=== PATIENT | female | born 1950 | race Caucasian/White ===

== ENCOUNTER 2020-01-20 16:14 | Emergency (ER) | payer MEDICARE, OTHER, SELFPAY ==
--- NOTE | ~2020-01-20 | XR_ITS ---
XR finger 2nd RT min 2V 01/20/2020 18:55 Indication: Right second finger fracture. Post reduction. Procedure: 2 views right second finger Comparison: 01/20/2020 Findings: Interval reduction of the right second distal phalangeal fracture with an overlying K wire extending into the middle phalanx. There is near-anatomic alignment of the fracture fragments post re duction. Impression: 1: Near-anatomic alignment of comminuted fracture right second distal phalanx post reduction with a s rima K wire. Reviewed, dictated and finalized at location A. LE POLISHER Impression: 1: Near-anatomic alignment of comminuted fracture right second distal phalanx p ost reduction with a single K wire.
--- NOTE | ~2020-01-20 | XR_ITS ---
XR hand RT min 3V 01/20/2020 16:50 Indication: Right hand pain after injury Procedure: 3 views right hand Comparison: No prior studies for comparison. Findings: There is a comminuted displaced right second distal phalangeal fracture with intra-articula r extension. This fracture appears to be open fracture with the bone extending to the skin surface do rsally. There is mild polyarticular osteoarthritis. Impression: 1: Comminuted open intra-articular displaced fracture right second distal phalanx. Reviewed, dictated and finalized at location A. [facility] NURSING DIRECTOR Impression: 1: Comminuted open intra-articular displaced fracture right second distal phala nx.
[2020-01-20 16:23] VITALS: BP 118/65; PULSE 90; RESP 16; TEMP 36.6; O2SAT 100
--- NOTE | 2020-01-20 16:29 | ED.UPPEXIN ---
HPI - Extremity Injury (Upper) General Chief Complaint: Extremity Injury, Upper <Tash Mata MD - Last Filed: 01/21/20 07:11> Stated Complaint: r hand injury <Tash Mata MD - Last Filed: 01/21/20 07:11> Time Seen by Provider: 01/20/20 16:16 <Tash Mata MD - Last Filed: 01/21/20 07:11> Source: patient and RN notes reviewed <Tash Mata MD - Last Filed: 01/21/20 07:11> Mode of arrival: EMS <Tash Mata MD - Last Filed: 01/21/20 07:11> Limitations: no limitations <Tash Mata MD - Last Filed: 01/21/20 07:11> History of Present Illness HPI narrative: Pt is a 69 y/o female who presents to the ED, via EMS from home, with 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 Pt denies a HI and LOC. Pt is right handed. Pt's right hand was wrapped in dressing and placed in a splint by EMS. Pt's Tetanus is not UTD. Pt has an open fracture to her 2nd digit on her right hand. Pt also reports 2nd digit pain on her right hand, but denies numbness, tingling, elbow pain and RUE pain. <Tash Mata MD - Last Filed: 01/21/20 07:11> MD complaint: injury to: right and hand <Tash Mata MD - Last Filed: 01/21/20 07:11> Onset (ago): minute(s) <Tash Mata MD - Last Filed: 01/21/20 07:11> Other injuries: none <Tash Mata MD - Last Filed: 01/21/20 07:11> Handedness: right <Tash Mata MD - Last Filed: 01/21/20 07:11> Place: home <Tash Mata MD - Last Filed: 01/21/20 07:11> Context: other (limb knocked her and her off a ladder) <Tash Mata MD - Last Filed: 01/21/20 07:11> Associated symptoms: other (2nd digit on right hand pain) <Tash Mata MD - Last Filed: 01/21/20 07:11> Treatments prior to arrival: bandage and splint <Tash Mata MD - Last Filed: 01/21/20 07:11> Related Data Home Medications: Home Medications Medication Instructions Recorded Confirmed amitriptyline 75 mg PO HS 01/20/20 conjugated estrogens [Premarin] 0.3 mg PO HS 01/20/20 indapamide 1.25 mg PO DAILY 01/20/20 lisinopril 20 mg PO DAILY 01/20/20 simvastatin 10 mg PO DAILY 01/20/20 <Tash Mata MD - Last Filed: 01/21/20 07:11> Allergies/Adverse Reactions: Allergies Allergy/AdvReac Type Severity Reaction Status Date / Time No Known Allergies Allergy Mild Verified 01/20/20 16:31 <Tash Mata MD - Last Filed: 01/21/20 07:11> Review of Systems Review of Systems: All systems reviewed & are unremarkable except as noted in HPI and below <Tash Mata MD - Last Filed: 01/21/20 07:11> Musculoskeletal: Musculoskeletal: Reports other (reports: 2nd digit on right hand pain; denies: right elbow pain, RUE pain) <Tash Mata MD - Last Filed: 01/21/20 07:11> Neurologic: Denies syncope, Denies numbness and Denies tingling <Tash Mata MD - Last Filed: 01/21/20 07:11> [facility] Past Medical History Medical History: Medical History (Updated 01/21/20 @ 00:00 by Baljeet Beltran) Anxiety Arthritis GERD (gastroesophageal reflux disease) HTN (hypertension) Hyperlipidemia Polyp of vagina Seasonal allergies Ulcer Vaginal venereal warts <Tash Mata MD - Last Filed: 01/21/20 07:11> Surgical History Surgical History: Surgical History (Updated 01/20/20 @ 16:38 by Corrina Lopez) H/O parathyroidectomy History of abdominoplasty History of hysterectomy History of tubal ligation Hx of section x2 <Tash Mata MD - Last Filed: 01/21/20 07:11> Family History Family History: Family History Mother Hypertension Family history of coronary artery disease Grandparent Cerebrovascular accide
[2020-01-20] MEDS: ONDANSETRON INJ 4 MG/2 ML VIAL IV PUSH (16:42)
[2020-01-20] MEDS: MORPHINE SULFATE 4 MG/ML INJ IV PUSH (16:42)
[2020-01-20] MEDS: LACTATED RINGERS 1,000 ML 999 ML IV CONT (16:50)
[2020-01-20] MEDS: TETANUS,DIPHTHERIA,AC PERTUSSIS ADULT 0.5 ML (ADACEL) IM (16:51)
--- NOTE | 2020-01-20 18:34 | PC.NURSE ---
Dr. Jordan at bedside at this time with patient.
[2020-01-20 18:51] VITALS: BP 152/83; PULSE 114; RESP 18; O2SAT 97
--- NOTE | 2020-01-20 19:07 | WPDCN ---
HPI Data of Consult Date/Time: 01/20/20 19:07 Primary Care Provider: UNKNOWN,DOCTOR Consult Narrative Narrative: Charisse Valderrama is a 69 year old female who was working in the yard with her this afternoon. They were cutting large branches. He was on a ladder and was struck by a large branch that kicked back. He fell to the ground. She got her right index finger caught between 2 heavy objects that caused an open fracture dislocation of the right index finger distal phalanx. She also has a small flap laceration of the right ring finger. I was called by the emergency room to see if I could take care of this. I reviewed the x-rays from a different location. I went to the emergency room and evaluated her finger she has a large subungual hematoma. There is a nondisplaced dorsal base fracture fragment that appears to be attached to the terminal tendon. The remainder of this bone appears to be intact and is grossly displaced apex dorsal. The nail plate remains attached to the distal phalanx but was avulsed from the nail fold. The skin laceration is minimal at the lateral fold. This patient's was also in the emergency room and plans were being made to shift him to [facility] for observation. She was anxious to be able to see him before he left. He was ended different room. This patient is in good health her current medications are simvastatin lisinopril and indapamide she is fully alert and oriented and attempted already been made to numb her finger and reduced the fracture. She was apprehensive about further injections. I agree to take over the repair of this digit and to follow this patient in my office until healed. She had already been given 2 g of Ancef IV and her Tdap PMFSH Past Medical History Medical History (Updated 01/20/20 @ 17:51 by Tash Mata MD) Anxiety Arthritis GERD (gastroesophageal reflux disease) HTN (hypertension) Hyperlipidemia Polyp of vagina Seasonal allergies Ulcer Vaginal venereal warts Surgical History Surgical History (Updated 01/20/20 @ 16:38 by Corrina Lopez) H/O parathyroidectomy History of abdominoplasty History of hysterectomy History of tubal ligation Hx of section x2 Family History Family History Mother Hypertension Family history of coronary artery disease Grandparent Cerebrovascular accident Social History Social History Smoking status: Never smoker Second hand tobacco smoke exposure: No Alcohol intake: current Gender identity (if verbalized by the patient): Female Meds Home Medications and Allergies Home Medications Medication Instructions Recorded Confirmed Type amitriptyline 75 mg PO HS 01/20/20 History conjugated estrogens [Premarin] 0.3 mg PO HS 01/20/20 History hydrocodone-acetaminophen 1 tablet PO Q4H PRN #14 tablet 01/20/20 Rx indapamide 1.25 mg PO DAILY 01/20/20 History lisinopril 20 mg PO DAILY 01/20/20 History simvastatin 10 mg PO DAILY 01/20/20 History Allergies Allergy/AdvReac Type Severity Reaction Status Date / Time No Known Allergies Allergy Mild Verified 01/20/20 16:31 Vital Signs Vital Signs - 24 hr 01/20/20 16:23 01/20/20 18:51 Temperature 36.6 C Pulse Rate 90 114 H Respiratory Rate 16 18 Blood Pressure 118/65 152/83 H Pulse Oximetry 100 97
--- NOTE | 2020-01-20 19:27 | PM.PROC ---
Procedure Note - Detailed Date of procedure: 01/20/20 Pre-op diagnosis: r hand injury open fracture dislocation of the distal phalanx right index finger 0.5 cm laceration of the right ring finger Post-op diagnosis: same Procedure performed: >Open reduction and internal fixation of the right index finger distal phalanx . Description of procedure: The patient was on a gurney in the emergency room. We cleaned away all the existing material that had been used prior to my arrival for treatment of this finger. The digit was anesthetized with 1% lidocaine with epinephrine as a digital block. The entire and was pain with Betadine. Under sterile conditions the fracture site was opened in shotgun fashion. The exact condition of this was noted. The fracture gap was irrigated with safe cleanse antiseptic solution. The distal phalanx was very unstable. The dorsal base remained in anatomic position. The repair was done with simple 5 0 nylon suture to repair the small skin laceration along the ulnar nail fold. The fracture was reduced and stabilized with sutures through the nail plate, exiting the skin proximal to the nail fold. I elected to try to internally stabilize this fracture by passing a 21 gauge needle retrograde down the shaft of the distal phalanx and across the distal interphalangeal joint. This was successful. We wrapped the hand and sterile gauze and she went to see her off before he left were [place]. When she returned we got post reduction x-rays. The showed satisfactory placement of the fixation needle and satisfactory reduction of the fracture. Her finger was formally dressed. A Band-Aid was applied to the ring finger. She is discharged with prescription for pain medicine instructions in wound care and follow-up. As noted she had received 2 g of Ancef prior to my arrival Surgeon: Kian Jordan MD
[2020-01-20 19:31] VITALS: BP 127/65; PULSE 112; RESP 20; O2SAT 98
== END 2020-01-20 19:33 | disposition home or self-care (01) ==
PROVIDERS: Emergency Provider Emergency Medicine
DX: S62.630B Displaced fracture of distal phalanx of right index finger, initial encounter for open fracture (principal); S61.214A Laceration without foreign body of right ring finger without damage to nail, initial encounter; F41.9 Anxiety disorder, unspecified; M19.90 Unspecified osteoarthritis, unspecified site; I10 Essential (primary) hypertension; E78.5 Hyperlipidemia, unspecified; E89.2 Postprocedural hypoparathyroidism; Z23 Encounter for immunization; W23.0XXA Caught, crushed, jammed, or pinched between moving objects, initial encounter
CPT/HCPCS: 12001; 26765; 26770; 73130; 73140; 90471; 90715; 96361; 96365; 96375; 99285; J0690; J2270; J2405; J7120

== ENCOUNTER 2020-03-04 08:23 | Outpatient (CLI) | payer MEDICARE, OTHER, SELFPAY ==
--- NOTE | ~2020-03-04 | XR_ITS ---
EXAMINATION: XR finger 2nd RT min 2V DATE: 03/04/2020 08:43 INDICATION: Fracture of the second distal phalanx. TECHNIQUE: 3 views of right hand second digit were obtained. COMPARISON: Right hand second digit radiographs and right hand radiographs 01/20/2020 FINDINGS: There is a comminuted intra-articular fracture of second distal phalanx. The main basilar d orsal fracture fragment demonstrates 2 mm posterior displacement. There is a displaced sagittal fract ure component of the tuft. There are nondisplaced fracture components at the medial and lateral aspec ts of the base of the distal phalanx. There is mild osteoarthritis of second metacarpophalangeal join t and proximal interphalangeal joint and moderate osteoarthritis of distal interphalangeal joint. IMPRESSION: 1. Comminuted fracture of second distal phalanx with slight worsening of alignment compared to the po streduction radiographs on 01/20/2020. Reviewed, dictated and finalized at location A. IMPRESSION: 1. Comminuted fracture of second distal phalanx with slight worsening of alignm ent compared to the postreduction radiographs on 01/20/2020.
== END 2020-03-04 08:24 | disposition home or self-care (01) ==
PROVIDERS: PCP Family Medicine; Visit Provider Plastic Surgery
DX: S62.630D Displaced fracture of distal phalanx of right index finger, subsequent encounter for fracture with routine healing (principal); X58.XXXD Exposure to other specified factors, subsequent encounter
CPT/HCPCS: 73140

== ENCOUNTER 2020-04-06 09:58 | Outpatient (CLI) | payer MEDICARE, OTHER, SELFPAY ==
--- NOTE | ~2020-04-06 | XR_ITS ---
XR finger 2nd RT min 2V DATE: 04/06/2020 10:12 INDICATION: 01/20/2020 fracture TECHNIQUE: 4 views COMPARISON: 01/20/2020 pre- and postreduction views, 03/04/2020 right second finger FINDINGS: No significant change in position or alignment at the comminuted intra-articular fracture o f the distal phalanx extending from the base of the tuft since 03/04/2020. Reviewed, dictated and finalized at location A.
== END 2020-04-06 09:59 | disposition home or self-care (01) ==
LOC: ANHIMG 10:00
PROVIDERS: PCP Family Medicine; Visit Provider Plastic Surgery
DX: S62.630D Displaced fracture of distal phalanx of right index finger, subsequent encounter for fracture with routine healing (principal)
CPT/HCPCS: 73140

== ENCOUNTER 2020-04-09 06:03 | Outpatient (CLI) | payer MEDICARE, OTHER, SELFPAY ==
[2020-04-09 18:34] LABS: SARS-CoV-2 RNA PCR Negative
== END 2020-04-09 06:04 | disposition home or self-care (01) ==
LOC: ANHCOVIDDT 06:05
PROVIDERS: PCP Family Medicine; Visit Provider Plastic Surgery
DX: Z01.818 Encounter for other preprocedural examination (principal); Z11.59 Encounter for screening for other viral diseases
CPT/HCPCS: 87635; U0003

== ENCOUNTER 2020-04-09 07:02 | Outpatient (CLI) | payer MEDICARE, OTHER, SELFPAY ==
--- NOTE | 2020-04-09 07:36 | ECG_ITS ---
Measurements Intervals [place] Rate: 83 P: 67 ME: 148 QRS: 24 QRSD: 90 T: 29 QT: 382 QTc: 451 Interpretive Statements SINUS RHYTHM NORMAL ECG Electronically Signed On 04-09-2020 8:48:55 CDT by Eric Bucio D.O.
[2020-04-09 07:44] LABS: Blood Urea Nitrogen 22 mg/dL (7-17); Carbon Dioxide 31 mmol/L (22-30); Chloride 99 mmol/L (98-107); Estimated Glomerular Filt Rate 55; Glucose 121 mg/dL (65-105); Potassium 3.7 mmol/L (3.4-5.0); Sodium 136 mmol/L (137-145)
== END 2020-04-09 07:03 | disposition home or self-care (01) ==
PROVIDERS: PCP Family Medicine; Visit Provider Anesthesiology
DX: Z01.818 Encounter for other preprocedural examination (principal); Z11.59 Encounter for screening for other viral diseases; I10 Essential (primary) hypertension; S62.630A Displaced fracture of distal phalanx of right index finger, initial encounter for closed fracture
CPT/HCPCS: 36415; 80048; 87635; 93005; C9803; U0003

== ENCOUNTER 2020-04-11 03:09 | Day surgery (SDC) | payer MEDICARE, OTHER, SELFPAY ==
[2020-04-08 18:16] VITALS: BMI 25.7
--- NOTE | 2020-04-10 19:42 | HP_ITS ---
DATE OF SERVICE: 04/11/2020 PREOPERATIVE DIAGNOSIS: Fracture dislocation of the right index distal phalanx. HISTORY: The patient was initially evaluated by me, 01/20/2020. When I met her in the emergency room at [facility], she and her had been trimming some trees, was on the ladder. fell, the ladder collapsed, the patient's finger was cut in the collapsing ladder and sustained an open fracture, which is the right index distal phalanx shaft. We undertook repairs of that in the emergency room the night of her visit and placed a 21-gauge needle across the fracture into the middle phalanx. This was done in somewhat hurried fashion. Her was being shipped out because of some injury to his ribs and she wanted to see him off. On subsequent x-rays, we note that the distal phalanx large fracture fragment subluxed a little bit. Therer is aslo a dorsal base fracture that is of significant size and has allowed subluxation. At one month there is a nonunion. We have waited for this to heal sufficiently to see how it would t rail turner and she has been engaged in therapy and not making satisfactory progress. The plan is to reopen the fracture site, reduce it possibly with a dorsal screw and longitudinal C-wire and correct the subluxation. She agrees to this and understands that continue to be stiffness of this digit, but probably markedly reduce her chance of osteoarthritis and pain later on. We have reviewed x-rays together. We have elected to do this procedure under MAC anesthetic with digital tourniquet. ALLERGIES: SHE HAS NO KNOWN ALLERGIES TO MEDICATIONS. MEDICATIONS: She normally takes: 1. Simvastatin. 2. Lisinopril. 3. Indapamide. 4. Premarin. PAST SURGICAL HISTORY: She has had no prior surgeries. She has no chronic ailments that she is aware of. She has some gastric reflux and some high blood pressure. However, she sees no specialist for these. FAMILY HISTORY: Noncontributory. SOCIAL HISTORY: She lives in [place]. She is retired. She is to [place]. PHYSICAL EXAMINATION: GENERAL: She is a very pleasant, cooperative adult female, 5 feet tall, weighing 134 pounds. She is currently in no acute distress. HEENT: Unremarkable. CHEST: Clear to auscultation. HEART: Regular rate and rhythm by palpation. ABDOMEN: Soft, nontender. EXTREMITIES: Exam reveals her main deficit is in the right index finger at the distal interphalangeal joint, where she remained slightly swollen, slightly erythematous over the dorsum of the joint. She has limited flexion and extension and it remains tender to manipulation. 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 PLAN: Open reduction and internal fixation, possibly with a cortical screw in C-wire. D I MT: Isaiah TALLEY
--- NOTE | ~2020-04-11 | XR_ITS ---
XR surgery orthopedic DATE: 04/11/2020 09:39 INDICATION: ORIF right index finger fracture TECHNIQUE: 5 spot C-arm images of the index finger 2.0 minutes fluoroscopy time 11.5999 cGy*cm2 total DAP COMPARISON: 04/16/2020 right index finger FINDINGS: A comminuted fracture of the distal phalanx is again noted. A screw is placed in posterior- anterior direction through the proximal medial aspect of the distal phalanx. A K wire is placed in th e dorsal aspect of the distal phalanx, extending into the proximal phalanx, terminating at the base o f the middle phalanx. IMPRESSION: ORIF distal phalangeal fracture Reviewed, dictated and finalized at Location A. Reviewed, dictated and finalized at location A.
[2020-04-11 06:15] VITALS: BP 126/61; PULSE 92; RESP 16; TEMP 36.8; O2SAT 100
--- NOTE | 2020-04-11 06:43 | WPDANESEPPF ---
Anes - Initial Pre Proc Eval Procedure: Operation Date: 04/11/20 07:30 Proposed Procedures p Open Reduction Internal Fixation Dislocated Right Index Distal Phalynx - Kian Jordan MD Date/Time: 04/11/20 06:43 Surgeon: Kian Jordan MD Pre Op Diagnosis: Dislocated Fracture Right Index Phalynx Patient Data Age: 70 Gender: F Height: 5 ft 0.5 in Weight: 60.9 kg Last Vital Signs Temp 36.8 C 04/11/20 06:15 Pulse 92 04/11/20 06:15 Resp 16 04/11/20 06:15 BP 126/61 04/11/20 06:15 Pulse Ox 100 04/11/20 06:15 Allergies Allergy/AdvReac Type Severity Reaction Status Date / Time No Known Allergies Allergy Mild Verified 04/08/20 18:13 Home Medications Medication Instructions Recorded Confirmed Type conjugated estrogens [Premarin] 0.3 mg PO HS 01/20/20 04/08/20 History lisinopril 20 mg PO DAILY 01/20/20 04/08/20 History amitriptyline 75 mg tablet 75 mg PO HS #90 tablet 03/18/20 04/08/20 Rx simvastatin 10 mg tablet 10 mg PO DAILY #90 tablet 03/18/20 04/08/20 Rx indapamide 1.25 mg tablet 1.25 mg PO DAILY #90 tablet 04/01/20 04/08/20 Rx cetirizine mg 04/08/20 History pantoprazole 40 mg PO HS 04/08/20 04/08/20 History Patient hx anesthesia problems: post op nausea/vomiting Family hx anesthesia problems: none PMFSH Past Medical History Medical History Anxiety Arthritis GERD (gastroesophageal reflux disease) HTN (hypertension) Hyperlipidemia Polyp of vagina Seasonal allergies Ulcer Vaginal venereal warts Surgical History Surgical History H/O parathyroidectomy History of abdominoplasty History of hysterectomy History of tubal ligation Hx of section x2 Family History Family History Mother Hypertension Family history of coronary artery disease Grandparent Cerebrovascular accident Social History Social History Smoking status: Never smoker Second hand tobacco smoke exposure: No Alcohol intake: current Gender identity (if verbalized by the patient): Female Anes - Eval Final PreProcedure Day of Procedure 04/11/20 06:43 Patient weight: overweight Heart: regular rate and rhythm Lungs: clear to auscultation Airway: Mallampati scale class II Neurological: alert and oriented Last oral intake: >/= 8 hours ASA classification: III Emergent: no Anesthetic plan: proceed Anesthesia type and monitoring: general LMA and standard monitoring Informed Consent: The patient's anesthetic plan and its attendant risks and benefits were discussed with the patient/family/POA. Questions were solicited and answers provided to the satisfaction of the patient/family/POA.
[2020-04-11] MEDS: SCOPOLAMINE 1.5 MG PATCH TRANSDERM (06:45)
[2020-04-11] MEDS: LACTATED RINGERS 1,000 ML 30 ML IV CONT ×2 (06:45→09:36)
--- NOTE | 2020-04-11 07:30 | WPDHPUPDATE1 ---
History and Physical Update Update Date/Time: 04/11/20 07:30 History and Physical has been reviewed, including an updated exam of the patient. There are NO changes in the patient's condition. Risks, benefits, and alternatives have been discussed and questions answered. Patient agrees to proceed with procedure.
[2020-04-11] MEDS: ceFAZolin 2 GM/D5W 50 ML 2 GM/50 ML BAG IVPB (07:38)
[2020-04-11] MEDS: LIDO 1%/EPINEPHRINE 1:100,000 20 ML VIAL 5 ML INFILTRATE (08:17)
[2020-04-11] MEDS: BUPIVACAINE/EPINEPHRINE 0.5% 10 ML VIAL 6 ML INFILTRATE (09:30)
[2020-04-11 09:36] VITALS: BP 115/49; PULSE 78; RESP 16; TEMP 36.1; O2SAT 100
--- NOTE | 2020-04-11 09:40 | PM.OP ---
Procedure Note - Brief Procedure Note - Brief Date of procedure: 04/11/20 Pre-op diagnosis: Dislocated Fracture Right Index Phalynx Post-op diagnosis: other (Non-union fracture subluxation of distal phalanx of right index finger.) Description of procedure: Delayed ORIF of right index distal phalanx fracture subluxation. Implants: 1.3 mm x 10 mm screw from Modular Hand Set. 0.035 inch c-wire. Anesthesia: MAC and local Surgeon: Kian Jordan MD Abrasive Water Jet Cutter Operator: Mamta Estimated blood loss (mL): 2 Drains: No Packing: No Pathology: none sent Complications: No immediate complications Condition: stable Disposition: same day
[2020-04-11 10:06] VITALS: BP 117/53; PULSE 85; RESP 16; O2SAT 100
--- NOTE | 2020-04-11 10:07 | P.OP_ITS ---
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 She was taken to the operating room where she was placed supine on the operating table. A time-out was held and confirmed. The extremity was prepped and draped in usual fashion as she was given IV sedation. The digit was imaged with fluoroscopy and anesthetized with 1% lidocaine with epinephrine, 6 milliliter. A digital tourniquet was placed on the finger and markings made for the incision extending over the middle phalanx across the distal interphalangeal joint and extended to either side of the nail fold. The skin flaps were elevated. The fracture deformity was identified. The fracture with the attached insertion of the terminal tendon were incised and elevated. The fracture site was debrided of scar tissue. The subluxation was corrected by incising scar to either side of the joint. This did not destabilize the joint laterally. The subluxation was stabilized with a longitudinal 0.035 in C- wire passed retrograde from the tip of the digit into the shaft of the middle phalanx. The fracture fragment was then inserted to its anatomic position and fixed with a 1.3 mm screw placed through the fragment and into the base of the distal phalanx. This appeared quite stable. We accepted the fixation. The tourniquet was removed and the skin wound closed with interrupted running 5 0 nylon suture. A bulky bandage was applied, no splint. She was discharged from the operating room stable condition. She will be discharged home with a prescription for hydrocodone . She received 2 g of Ancef preop. She has instructions in wound care and follow-up. 6 milliliter of Marcaine 0.5% with epinephrine were added to the digit. Surgeon: Kian Jordan MD
== END 2020-04-11 10:47 | disposition home or self-care (01) ==
PROVIDERS: PCP Family Medicine; Visit Provider Plastic Surgery
PROC: (CPT 26546; principal; 2020-04-11 07:30)
DX: S62.630K Displaced fracture of distal phalanx of right index finger, subsequent encounter for fracture with nonunion (principal); W22.8XXD Striking against or struck by other objects, subsequent encounter; I10 Essential (primary) hypertension; K21.9 Gastro-esophageal reflux disease without esophagitis; E78.5 Hyperlipidemia, unspecified; M19.90 Unspecified osteoarthritis, unspecified site; F41.9 Anxiety disorder, unspecified
CPT/HCPCS: 26546; A9270; C1713; J0131; J0690; J2250; J2405; J2704; J3010; J7120

== ENCOUNTER 2020-05-14 13:05 | Outpatient (CLI) | payer MEDICARE, OTHER, SELFPAY ==
--- NOTE | ~2020-05-14 | XR_ITS ---
EXAMINATION: XR finger 2nd RT min 2V DATE: 05/14/2020 13:23 INDICATION: ORIF second distal phalangeal fracture dislocation TECHNIQUE: Dorsal palmar, lateral and 2 oblique views of the right second digit were obtained COMPARISON: 04/06/2020 FINDINGS: Internal fixation of a comminuted intra-articular fracture of the right second distal phalanx. A scre w fixes a small fragment comprising portion of the dorsal/ulnar aspect of the articular surface which appears to be in near-anatomic alignment. The prior volarly subluxed main fragment of the distal pha lanx has also been reduced to essentially anatomic alignment with respect to the head of the middle p halanx with axillary directed percutaneous pin fixation extending from the tuft of the distal phalanx to the base of the middle phalanx. Persistent mild ulnar displacement of a fracture comprising ulnar side of the tuft of the distal phalanx which is not included within the fixation. Mild polyarticular osteoarthritis at the radial aspect of the carpus, the first and second metacarpophalangeal joints a s well as the second proximal and distal interphalangeal joints. IMPRESSION: 1. Comminuted intra-articular fracture of the right second distal phalanx with reduction and fixation in near-anatomic alignment of both the distal interphalangeal joint and the fragments comprising the articular surface of the distal phalanx. Reviewed, dictated and finalized at location A. IMPRESSION: 1. Comminuted intra-articular fracture of the right second distal phalanx with reduction and fixation in near-anatomic alignment of both the distal interphala ngeal joint and the fragments comprising the articular surface of the distal ph alanx.
== END 2020-05-14 13:06 | disposition home or self-care (01) ==
PROVIDERS: PCP Family Medicine; Visit Provider Plastic Surgery
DX: S62.630D Displaced fracture of distal phalanx of right index finger, subsequent encounter for fracture with routine healing (principal); X58.XXXD Exposure to other specified factors, subsequent encounter
CPT/HCPCS: 73140

== ENCOUNTER 2021-05-06 09:07 | Outpatient (CLI) | payer MEDICARE, OTHER, SELFPAY ==
--- NOTE | 2021-05-06 12:33 | WPDPFTINT ---
PFT Procedure Performed PFT Procedure Performed Plethysmography (Lung Vol) Diffusing Cap (DLCO) Flow Vol Loop Spirometry w/o Bronchodil PFT Interpretation This is a pulmonary function test with spirometry, plethysmography and diffusing capacity. The test was performed and results interpreted in accordance with the 2019 and 2005 ATS/ERS Task Force guidelines respectively using the Global Lung Function Initiative-2012 reference equations. Patient demonstrated good effort and cooperation. Reproducibility criteria were met. The quality of the pre bronchodilator spirometry maneuver was Grade A. Findings: Spirometry: The contour the inspiratory expiratory flow tracing are normal. The FVC is 2.65 L, 108% predicted. The FEV1 is 2.12 L, 111% predicted. The FEV1: FVC ratio was 80%. Plethysmography: The total lung capacity is 4.62 L, 104% predicted. Functional residual capacity is 2.28 L, 91% predicted. The residual volume is 1.42 L, 72% predicted. Diffusing capacity: The absolute diffusion capacity is 12.6, 67% predicted. The diffusing capacity corrected for alveolar volume is 3.31, 74% predicted. Impression: The spirometry is normal without evidence of an obstructive abnormality. The lung volumes are normal. The diffusing capacity is normal. There are no prior studies for comparison
== END 2021-05-06 09:08 | disposition home or self-care (01) ==
PROVIDERS: PCP Physician Assistant; Visit Provider Nurse Practitioner Adult Health
DX: R06.00 Dyspnea, unspecified (principal); J44.9 Chronic obstructive pulmonary disease, unspecified; G47.33 Obstructive sleep apnea (adult) (pediatric); Z72.0 Tobacco use
CPT/HCPCS: 94375; 94726; 94729

== ENCOUNTER 2022-11-09 10:46 | Outpatient (CLI) | payer MEDICARE, SELFPAY ==
--- NOTE | ~2022-11-09 | MM_ITS ---
EXAMINATION: MM screening amparo BI w gaston HISTORY: Screening TECHNIQUE: Craniocaudal and mediolateral oblique 3-D tomosynthesis images were obtained and synthetic 2-D images were generated. CAD analysis was submitted and interpreted. COMPARISON: 08/01/2015 BREAST PARENCHYMAL COMPOSITION: The breasts are heterogeneously dense, which may obscure small masses . FINDINGS: There is no evidence of suspicious mass, calcification, or architectural distortion to sugg est malignancy in either breast. There has been no suspicious interval change. IMPRESSION: 1. No mammographic evidence of malignancy. 2. Recommend routine screening mammography in one year. BI-RADS Category 1: Negative Reviewed, dictated and finalized at location B. L CITY DRIVER
== END 2022-11-09 10:47 | disposition home or self-care (01) ==
PROVIDERS: PCP Family Medicine; Visit Provider Physician Assistant
DX: Z12.31 Encounter for screening mammogram for malignant neoplasm of breast (principal)
CPT/HCPCS: 77063; 77067

== ENCOUNTER 2024-11-11 09:29 | Outpatient (CLI) | payer MEDICARE, SELFPAY ==
--- NOTE | ~2024-11-11 | MR_ITS ---
EXAMINATION: MR brain/brain stem wo/w con DATE: 11/11/2024 10:30 INDICATION: Syncope and collapse TECHNIQUE: Magnetic resonance imaging (MRI) of the brain and brainstem was performed without and with 13 mL Multihance intravenous contrast. Sequences included sagittal and axial T1-weighted SE, axial d iffusion-weighted FS SE, axial 3D SWAN, axial T2-weighted FLAIR, and axial T2-weighted FSE. Postcontr ast axial and coronal T1-weighted SE was obtained. Apparent diffusion coefficient (ADC) maps were cre ated. COMPARISON: None. FINDINGS: There are no areas of restricted diffusion to suggest acute infarction. No intracranial hemorrhage or abnormal intracranial mass lesion. Minimal scattered foci of nonspecific increased T2-weighted signa l intensity in the cerebral white matter, predominantly involving the deep and periventricular white matter which is within normal limits for age. There are no intraparenchymal signal abnormalities seen on the other pulse sequences. The ventricles are symmetric and normal in size. There are no abnormal extra-axial fluid collections. Flow voids are seen in the cerebral arteries on the T2-weighted seque nces consistent with their expected patency. Mild mucosal thickening the bilateral ethmoid sinuses. C hanges of bilateral intraocular lens replacement. Visualized orbits and soft tissues are unremarkabl e. There are no areas of abnormal enhancement on the post contrast images. IMPRESSION: 1. Normal aging brain. Reviewed, dictated and finalized at location A. ST COATER DEVELOPER IMPRESSION: 1. Normal aging brain.
--- OUTSIDE RECORDS SUMMARY | 2024-11-15 01:56 | XMS_ITS | Encounter Summary ---
Author Organization [facility] Address [address] [place] [address] Care Team Providers Care Vending Service Technician Name Role Phone Walter Patrick MD Unavailable [phone] Feng George Primary Care Provider [phone] Reason for Referral * Cardiology (Routine) - Closed Specialty Diagnoses / Procedures Referred By Contac t Referred To Contact Diagnoses Fatigue, unspecified type BERGER (dyspnea on exertion) Procedures Transthoracic Echo Complete W Doppler/CF Adams Ellison NP [address] [address] Phone: tel: fax: [facility] Referral ID Status Reason Start Date Expiration Date Visits Re quested Visits Authorized [id number] Closed 04/14/2021 05/14/2022 1 1 Reason for Visit * Reason Comments Dizziness four wk f/u Encounter Details Date Type Department Care Team (Late st Contact Info) Description 04/14/2021 11:30 AM CDT Office Visit [facility] Cardiology [address] [facility] [address] [id number] Adams Ellison NP [address] [facility] [address] [address] Fatigue, unspecified type (Primary Dx); BERGER (dyspnea on exertion) Social History Tobacco Use Types Packs/Day Years Used Date Smoking Tobacco: Never Comments Unknown Sex and Gender Information Value Date Recorded Sex Assigned at Not on file Legal Sex Female 12:03 AM 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 STEWARD/STEWARDESS Gender Identity Not on file Sexual Orientation Not on file documented as of this encounter Last Filed Vital Signs Vital Sign Reading Time Taken Comments Blood Pressure 126/72 04/14/2021 11:30 AM CDT Pulse 92 04/14/2021 11:30 AM CDT Temperature - - Respiratory Rate - - Oxygen Saturation 97% 04/14/2021 11:30 AM CDT Inhaled Oxygen Concentration - - Weight 63 kg (139 lb) 04/14/2021 11:30 AM CDT Height 152.4 cm (5') 04/14/2021 11:30 AM CDT Body Mass Index 27.15 04/14/2021 11:30 AM CDT documented in this encounter Progress Notes * Adams Ellison NP - 04/14/2021 11:30 AM CDT Images from the original note were not included. [facility] Cardiology [address] [place] [address] Date of Visit: 04/14/2021 Patient ID: Dalton Gresham 1950 Chief Complaint: Dalton Gresham is a 71 y.o. female who is a newly established patient of Dr. Miller returning the office for follow-up after she had a stress echo. History of Present Illness: Dalton Gresham is a 71 y.o. female with a PMHx of HTN, dyslipidemia, GERD seen in very kind referralby RODOLFO Loomis for my opinion regarding tachycardia, exertional dyspnea, and dizziness. She notes her mother age 53 on cath table with CAD, brother with CAD. 03/19/21 Initial visit: Notes for 2 years having progressive BERGER, decreased exercise tolerance along with bilateral arm heaviness, dizziness upon rising from seated position. Also, has noted elevated heart rates 81-99 at rest up to 110 with activity. She has been following HR and BP at home. BP controlled on current meds including Indapamide, 170's when she was told to stop it end of January. She says her has alsonoted limitations and BERGER. 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 Losartan new in Dec as she was having cough thought due to Lisinopril which she took for years and did resolve. Dizziness is positional s tanding or bending over then resolves within a minute or so. No CP at any time. No syncope, has hadocc where she had transiently felt like she might pass out. No edema. Snores at night, tired all the time even after night's rest, wakes up tired. No DM, DVT/PE or bleeding problems no melena or BRBPR. No recent cardiac testing. HAd echo years ago. Takes Amitryptiline for burning mouth syndrome wh ich has resolved it, now for 3 years. She has not known CAD or other CV history, no CVA. BERGER she feel like throat is tight like breathing through a straw like pinching off airway up high in throat. She has noted this since her 40's waking her up from sleep but had same feeling like throat closing when pushing fertilizer once. Given Xanax. 04/14/21 CAT visit- she returns for follow-up after having her stress echo last week. She is primarily concerned about being tired out after doing activities that involve upper body movement or arm motion. For example she was recently gardening, kneeling in using her arms and hands to plant plants and this tired her out after 5 or 6 plants. Her arms feel tired and she feels a little like she has to catch her breath. When she feels anxious and feels like her throat is closing as mentioned in her initial consultation with Dr. Miller, she does get some relief with Xanax. Records that I personally reviewed on the day of this visit include: (the interpretation is outlined in the HPI above) 03/19/[address] Miller, 04/10/2021 stress echo report I have also reviewed: allergies, current medications, past family history, past medical history, past social history, past surgical history and problem list Review of Systems Constitutional: Negative for diaphoresis, fever, malaise/fatigue, weight gain and weight loss. HENT: Negative for hearing loss. Eyes: Negative for visual disturbance. Cardiovascular: Negative for chest pain, claudication, dyspnea on exertion, leg swelling, orthopnea, palpitations, paroxysmal nocturnal dyspnea and syncope. Respiratory: Positive for cough. Negative for hemoptysis, shortness of breath, snoring and wheezing. Hematologic/Lymphatic: Does not bruise/bleed easily. Skin: Negative for poor wound healing and rash. Musculoskeletal: Negative for joint pain and myalgias. Gastrointestinal: Positive for heartburn. Negative for nausea and vomiting. Genitourinary: Negative for hematuria. Neurological: Negative for dizziness, headaches and light-headedness. Psychiatric/Behavioral: Negative for depression. The patient is not nervous/anxious. Vital Signs: BP 126/72 (BP Location: Right arm, Patient Position: Sitting) Pulse 92 Ht 152.4 cm (5') Wt 63kg (139 lb) SpO2 97% BMI 27.15 kg/m?? Physical Exam Constitutional: General: She is not in acute distress. Appearance: She is well-developed. HENT: Head: Normocephalic and atraumatic. Nose: Nose normal. Eyes: General: No scleral icterus. Conjunctiva/sclera: Conjunctivae normal. Pupils: Pupils are equal, round, and reactive to light. Neck: Vascular: No JVD. Trachea: No tracheal deviation. Cardiovascular: Rate and Rhythm: Normal rate and regular rhythm. Heart sounds: Normal heart sounds. No murmur heard. Pulmonary: Effort: Pulmonary effort is normal. No respiratory distress. Breath sounds: Normal breath sounds. Musculoskeletal: Cervical back: Normal range of motion. Skin: General: Skin is warm and dry. Neurological: Mental Status: She is alert and oriented to person, place, and time. No Known Allergies Current Outpatient Medications: ??? ALPRAZolam (XANAX) 2 mg tablet, , Disp: , Rfl: ??? amitriptyline (ELAVIL) 75 mg tablet, Take 75 mg by mouth daily, Disp: , Rfl: ??? estrogens, conjugated, (Premarin) 0.45 mg tablet, , Disp: , Rfl: ??? indapamide (LOZOL) 1.25 mg tablet, Take 1.25 mg by mouth daily, Disp: , Rfl: ??? loratadine (CLARITIN) 10 mg tablet, Take 10 mg by mouth daily, Disp: , Rfl: ??? losartan (COZAAR) 50 mg tablet, Take 50 mg by mouth daily, Disp: , Rfl: ??? pantoprazole DR (PROTONIX) 40 mg EC tablet, Take 40 mg by mouth daily, Disp: , Rfl: ??? simvastatin (ZOCOR) 20 mg tablet, Take 20 mg by mouth daily, Disp: , Rfl: No results found for: POTASSIUM, BUNSER, CREATININE, CHOL, TRIG, LDL, LDLCALC, HDL Assessment: Diagnoses and all orders for this visit: Fatigue, unspecified type (Primary) - Transthoracic Echo Complete W Doppler/CF; Future BERGER (dyspnea on exertion) - Transthoracic Echo Complete W Doppler/CF; Future Plan/Recommendations: Her recent stress test showed no evidence of ischemia or infarction. As outlined in Dr. Miller it is initial consultation, I recommend pursuing a 2D echo due to the unremarkable stress echo result. The patient agrees to pursue this. Further consideration, particularly if echo is unremarkable, would be to pursue PFTs to assess for respiratory abnormality. Otherwise, I recommend ongoing treatment of her hypertension and hyperlipidemia. Stay well hydratedto minimize the dizziness that she appears to be susceptible to with dehydration. Return to the office to see Dr. Miller after the echo. Call us sooner with questions or concerns. GA Brown- Nurse Practitioner with [facility] Cardiology This note is dictated and transcribed using [employer] Software. Clamp Forklift Operator variancesmay occur. Despite proofreading, typographical errors may occur. * Mauricio Miller MD - 04/14/2021 11:30 AM CDT You can order PFT's but if she wants to wait until after Echo that is fine. documented in this encounter Plan of Treatment Not on file documented as of this encounter Results * TRANSTHORACIC ECHO (TTE) COMPLETE W DOPPLER/CF W CONTRAST (05/01/2021 2:45 PM CDT) Anatomical Region Laterality Modality Ultrasound 05/01/2021 1:44 PM CDT Narrative 05/01/2021 3:45 PM CDT [facility] Cardiology [address] [facility] [address] [facility] [address], [place] [address] [address] [facility] [facility] [address], [place] [address] P:[phone] P:[phone] Echocardiographic Report Patient Name: DALTON GRESHAM : 1950 Study Date: 05/01/2021 1:44:44 PM Gender: F Tech: Location: [place] Ref.Provider: FENG GEORGE Height(Cm): 152 BSA: 1.61 Weight(Kg): 63.96 Heart Rate: 86 BP: 158/80 Quality: Definity contrast agent used to enhance endocardial border definition Order Provider: ADAMS ELLISON Procedures: Echocardiographic Report: Transthoracic echocardiogram with complete 2D, M-Mode, color Doppler examination and Definity contrast. Indications: Fatigue, and Dyspnea on Exertion. Measurements: 2D/M Mode ? Doppler ? Measurement ?Value ?Normal Range ?Measurement ?Value ?Normal Range ? EF Mod ? 68 ? AV Mean PG ? 4 ?mmHg ? EF MM ?75 ? [ 55 - 70 ] % ? AV Peak Anthony ?1.34 ? m/s ? LVIDd 2D ? 3.70 ? [ 3.90 - 5.30 ] cm ?AV Peak PG ? 7 ?mmHg ? LVIDd MM ? 4.35 ? [ 3.90 - 5.30 ] cm ?AV VTI ? 0.26 ? cm ? LVIDs 2D ? 2.49 ? [ 2.30 - 3.90 ] cm ?LVOT Peak Anthony ?1.15 ? [ 0.70 - 1.10 ] m/s ? LVIDs MM ? 2.47 ? [ 2.30 - 3.90 ] cm ?LVOT VTI ? 0.27 ? cm ? LVPWd 2D ? 1.02 ? [ 0.60 - 1.00 ] cm ?MV E Peak Anthnoy ?0.87 ? [ 0.60 - 1.30 ] m/s ? LVPWd MM ? 0.75 ? [ 0.60 - 1.00 ] cm ?MV A Peak Anthony ?1.01 ? [ 0.40 - 0.80 ] m/s ? IVSd 2D ?0.94 ? [ 0.60 - 0.90 ] cm ?MV Decel Time ?200 ?[ 150 - 200 ] msec ? IVSd MM ?0.75 ? [ 0.60 - 0.90 ] cm ?PV Peak Anthony ?1.05 ? [ 0.40 - 0.80 ] m/s ? LA Dimension MM ?3.07 ? [ 2.70 - 3.80 ] cm ?E' ? 0.05 ? AoR Diam MM ?3.07 ? [ 2.60 - 3.70 ] cm ?E/E' ? 15 ? Findings: Interpretation Site: Exam was interpreted at [facility]. Left Ventricle: Normal left ventricular systolic function. No focal wall motion abnormalities. Normal left ventricular size. Definity contrast agent used to visually enhance endocardial wall motion and contractility. Lot Number: [id number]. Normal left ventricular wall thickness. Impaired diastolic relaxation Grade I. Ejection fraction is measured at 68 %. Right Ventricle: Normal right ventricular size. Normal right ventricular systolic function. Left Atrium: The left atrium is normal in size. Right Atrium: The right atrium is normal in size. Atrial Septum: Normal atrial septum. Mitral Valve: Normal appearance of the mitral valve. Mild mitral annular calcification. Mild mitral valve regurgitation. Aortic Valve: Aortic valve not well visualized. No evidence of hemodynamically significant aortic stenosis by Doppler. No aortic regurgitation. Tricuspid Valve: Normal appearance of the tricuspid valve. Right ventricular systolic pressure could not be estimated due to inadequate visualization of the tricuspid regurgitation jet. Trivial regurgitation in the tricuspid valve. Pulmonic Valve: Pulmonic valve not well visualized. Pericardium: Pericardium not well visualized. Trivial pericardial effusion. There is an anterior echo free space consistent with epicardial fat pad. Aorta: Normal aortic root. No aortic root dilation. IVC: Normal size and normal respiratory collapse consistent with normal right atrial pressure (<5 mmHg). Conclusions: Normal left ventricular systolic function. No focal wall motion abnormalities. Normal left ventricular size. Definity contrast agent used to visually enhance endocardial wall motion and contractility. Lot Number: [id number]. Normal left ventricular wall thickness. Impaired diastolic relaxation Grade I. Ejection fraction is measured at 68 %. Normal appearance of the mitral valve. Mild mitral annular calcification. Mild mitral valve regurgitation. Normal sinus rhythm. Electronically Signed By: Walter Miller MD 2021-05-01 15:45:35 CDT Procedure Note Mauricio Miller MD - 05/01/2021 [facility] Cardiology [address], [place] [address] [address] [facility] [address], [place] [address] P:[phone] P:[phone] Echocardiographic Report Patient Name: DALTON GRESHAMPatient ID: [id number] : [id number] Date: 05/01/2021 1:44:44 PM Gender: FAccession #: [id number] Tech: SWLocation: [place] Ref.Provider: Caio GEORGE(Cm): 152 BSA: 1.61Weight(Kg): 63.96 Heart Rate: 86BP: 158/80 Quality: Definity contrast agent used to enhance endocardial borderdefinitionOrder Provider: ADAMS ELLISON Procedures: Echocardiographic Report: Transthoracic echocardiogram with complete 2D, M-Mode, color Dopplerexamination and Definity contrast. Indications: Fatigue, and Dyspnea on Exertion. Measurements: 2D/M Mode Doppler Measurement Value Normal Range Measurement ValueNormal Range EF Mod 68 AV Mean PG 4mmHg EF MM 75 [ 55 - 70 ] % AV Peak Anthony 1.34m/s LVIDd 2D 3.70 [ 3.90 - 5.30 ] cm AV Peak PG 7mmHg LVIDd MM 4.35 [ 3.90 - 5.30 ] cm AV VTI 0.26cm LVIDs 2D 2.49 [ 2.30 - 3.90 ] cm LVOT Peak Anthony 1.15[ 0.70 - 1.10 ] m/s LVIDs MM 2.47 [ 2.30 - 3.90 ] cm LVOT VTI 0.27cm LVPWd 2D 1.02 [ 0.60 - 1.00 ] cm MV E Peak Anthony 0.87[ 0.60 - 1.30 ] m/s LVPWd MM 0.75 [ 0.60 - 1.00 ] cm MV A Peak Anthony 1.01[ 0.40 - 0.80 ] m/s IVSd 2D 0.94 [ 0.60 - 0.90 ] cm MV Decel Time 200[ 150 - 200 ] msec IVSd MM 0.75 [ 0.60 - 0.90 ] cm PV Peak Anthony 1.05[ 0.40 - 0.80 ] m/s LA Dimension MM 3.07 [ 2.70 - 3.80 ] cm E' 0.05 AoR Diam MM 3.07 [ 2.60 - 3.70 ] cm E/E' 15 Findings: Interpretation Site: Exam was interpreted at [facility]. Left Ventricle: Normal left ventricular systolic function. No focal wall motionabnormalities. Normal left ventricular size. Definity contrast agent used to visually enhanceendocardial wall motion and contractility. Lot Number: [id number]. Normal left ventricular wallthickness. Impaired diastolic relaxation Grade I. Ejection fraction is measured at 68%. Right Ventricle: Normal right ventricular size. Normal right ventricular systolicfunction. Left Atrium: The left atrium is normal in size. Right Atrium: The right atrium is normal in size. Atrial Septum: Normal atrial septum. Mitral Valve: Normal appearance of the mitral valve. Mild mitral annular calcification.Mild mitral valve regurgitation. Aortic Valve: Aortic valve not well visualized. No evidence of hemodynamicallysignificant aortic stenosis by Doppler. No aortic regurgitation. Tricuspid Valve: Normal appearance of the tricuspid valve. Right ventricular systolicpressure could not be estimated due to inadequate visualization of the tricuspidregurgitation jet. Trivial regurgitation in the tricuspid valve. Pulmonic Valve: Pulmonic valve not well visualized. Pericardium: Pericardium not well visualized. Trivial pericardial effusion. There is ananterior echo free space consistent with epicardial fat pad. Aorta: Normal aortic root. No aortic root dilation. IVC: Normal size and normal respiratory collapse consistent with normal rightatrial pressure (<5 mmHg). Conclusions: Normal left ventricular systolic function. No focal wall motionabnormalities. Normal left ventricular size. Definity contrast agent used to visually enhanceendocardial wall motion and contractility. Lot Number: [id number]. Normal left ventricular wallthickness. Impaired diastolic relaxation Grade I. Ejection fraction is measured at 68%. Normal appearance of the mitral valve. Mild mitral annular calcification.Mild mitral valve regurgitation. Normal sinus rhythm. Electronically Signed By: Walter Miller MD 2021-05-01 15:45:35 CDT Adams Ellison NP CV ECHO PROCEDURES Final Result documented in this encounter Visit Diagnoses Diagnosis Fatigue, unspecified type- Primary BERGER (dyspnea on exertion) Other dyspnea and respiratory abnormality Fatigue, unspecified type BERGER (dyspnea on exertion) Other dyspnea and respiratory abnormality documented in this encounter Care Teams Vending Service Technician Relationship Specialty Start Date End Date Feng George PA [address] [place] [address] PCP - General Physician Covered Buckle Assembler 03/07/21 Walter Patrick [place] [address] 02/08/17 documented as of this encounter
--- OUTSIDE RECORDS SUMMARY | 2024-11-15 01:56 | XMS_ITS | Encounter Summary ---
Author Organization [facility] Address [address] [place] [address]. [place] [address] [place] [address] Care Team Providers Care Precision Assembler Name Role Phone Unavailable Primary Care Provider Unavailabl e Encounter Details Date Type Department Care Team (Late st Contact Info) Description 05/21/1999 [place] [address] , Generic Conversion, Social History Tobacco Use Types Packs/Day Years Used Date Smoking Tobacco: Never Assessed Comments Unknown Sex and Gender Information Value Date Recorded Sex Assigned at Not on file Legal Sex Female 6:04 PM CDT Gender Identity Not on file Sexual Orientation Not on file documented as of this encounter Plan of Treatment Not on file documented as of this encounter Visit Diagnoses Not on filedocumented in this encounter
--- OUTSIDE RECORDS SUMMARY | 2024-11-15 01:56 | XMS_ITS | Referral Summary ---
Author Organization [facility] Address [address] [address] Care Team Providers Care Retirement Administrator Name Role Phone Walter Patrick MD Unavailable [phone] Feng George Primary Care Provider [phone] Encounters Date Type Department Care Team Description 10/31/2024 8:15 AM CUTTER WET MACHINE Ancillary Procedure [facility] Medical Group Cardiology [address] [place] [id number] Syncope and collapse from Last 3 Months Allergies No known active allergies Medications losartan (COZAAR) 50 mg tablet Take 50 mg by mouth daily 02/19/2021 Active indapamide (LOZOL) 1.25 mg tablet Take 1.25 mg by mouth daily 02/26/2021 Active estrogens, conjugated, (Premarin) 0.45 mg tablet Active simvastatin (ZOCOR) 20 mg tablet Take 20 mg by mouth daily 01/30/2021 Active ALPRAZolam (XANAX) 2 mg tablet Active amitriptyline (ELAVIL) 75 mg tablet Take 75 mg by mouth daily 03/14/[address] (PROTONIX) 40 mg EC tablet Take 40 mg by mouth daily Active loratadine (CLARITIN) 10 mg tablet Take 10 mg by mouth daily Active Active Problems Problem Noted Date Diagnosed Date Chronic fatigue 05/22/2021 Dizziness 03/19/2021 Essential hypertension 03/19/2021 Tachycardia, unspecified 03/19/2021 BERGER (dyspnea on exertion) 03/19/2021 Family history of premature coronary artery dise ase 03/19/2021 Social History Tobacco Use Types Packs/Day Years Used Date Smoking Tobacco: Never Comments Unknown Sex and Gender Information Value Date Recorded Sex Assigned at Not on file Legal Sex Female 12:03 AM CUTTER WET MACHINE Gender Identity Not on file Sexual Orientation Not on file Last Filed Vital Signs Vital Sign Reading Time Taken Comments Blood Pressure 156/80 10/31/2024 9:03 AM CUTTER WET MACHINE Pulse 83 05/22/2021 12:43 PM CDT Temperature - - Respiratory Rate - - Oxygen Saturation 99% 05/22/2021 12:43 PM CDT Inhaled Oxygen Concentration - - Weight 62.4 kg (137 lb 8 oz) 05/22/2021 12:43 PM CDT Height 152.4 cm (5') 05/22/2021 12:43 PM CDT Body Mass Index 26.85 05/22/2021 12:43 PM CDT Plan of Treatment Not on file Procedures Procedure Name Priority Date/Time Associated Diagnosis Comments TRANSTHORACIC ECHO (TTE) COMPLETE W DOPPLER/CF WO CONTRAST Routine 10/31/2024 9:03 AM CUTTER WET MACHINE Syncope and collapse from Last 3 Months Results * TRANSTHORACIC ECHO (TTE) COMPLETE W DOPPLER/CF WO CONTRAST (10/31/2024 9:03 AM CUTTER WET MACHINE) Anatomical Region Laterality Modality Ultrasound 10/31/2024 8:44 AM CUTTER WET MACHINE Narrative 10/31/2024 12:25 PM CUTTER WET MACHINE [facility] Medical Group Cardiology [address] [facility] [address] [id number] [address] [facility] [address], [place] [address] P:[phone] P:[phone] Echocardiographic Report Patient Name: CHARISSE GRESHAM L : 1950 Study Date: 10/31/2024 8:44:51 AM Gender: F Tech: KRYSTEN Location: [place] Ref Provider: GABRIELE FERNANDES Height(Cm): 152 BSA: 1.62 Weight(Kg): 62.1 Heart Rate: 85 BP: 156 / 80 Quality: Good Order Provider: GABRIELE FERNANDES PROCEDURES: Echocardiographic Report: Transthoracic echocardiogram with complete 2D, M-Mode, and color Doppler examination. With Strain Analysis. INDICATIONS: R55 Syncope and collapse. Measurements: 2D/M Mode ?Doppler Measurement ?Value ?Normal Range ?Measurement ?Value ?Normal Range LVIDd 2D ? 3.04 ? [ 3.80 - 5.20 ] cm ?TIFFANY Vmax ? 2.70 ? [ 2.00 - 4.00 ] cm2 LVIDs 2D ? 1.98 ? [ 2.20 - 3.50 ] cm ?AV Mean PG ? 5 ?mmHg LVPWd 2D ? 1.16 ? [ 0.60 - 0.90 ] cm ?AV Peak Anthony ?1.40 ? [ 1.00 - 1.70 ] m/s IVSd 2D ?1.25 ? [ 0.60 - 0.90 ] cm ?AV Peak PG ? 8 ?mmHg LA Volume Index ?21 ? [ 16 - 34 ] cc/m2 ? AV VTI ? 27.58 ?cm ___ ?___ ?___ ? LVOT Diam ?1.99 ? [ 1.70 - 2.10 ] cm ___ ?___ ?___ ? LVOT Peak Anthony ?1.21 ? [ 0.70 - 1.10 ] m/s ___ ?___ ?___ ? LVOT VTI ? 29.17 ?cm ___ ?___ ?___ ? MV E Peak Anthony ?0.66 ? [ 0.60 - 1.30 ] m/s ___ ?___ ?___ ? MV A Peak Anthony ?0.96 ? [ 1.00 - 1.20 ] m/s ___ ?___ ?___ ? MV Decel Time ?200 ?[ 104 - 258 ] msec ___ ?___ ?___ ? Lateral E` ? 0.07 ? [ 0.10 - 0.15 ] m/s ___ ?___ ?___ ? E` ? 0.04 ? m/s E/E` ? 10 Measurement ?Value ?Normal Range ?Measurement ?Value ?Normal Range 2D/M Mode ?Doppler - FINDINGS: Interpretation Site: Exam was interpreted at [facility]. Left Ventricle: Ejection fraction is measured at 66 %. Global Longitudinal Strain is -19 %. The left ventricular size and systolic function is normal. There is concentric left ventricular remodeling. The left ventricular ejection fraction is visually estimated to be 60-65%. Right Ventricle: The right ventricle is normal in size and systolic function. Left Atrium: The left atrium is normal in size. Right Atrium: The right atrium is normal in size. Atrial Septum: The atrial septum is not well visualized. Mitral Valve: The mitral valve leaflets are thickened. There is trace mitral regurgitation. Aortic Valve: The aortic valve is probably trileaflet. It opens well and there is no aortic regurgitation. Tricuspid Valve: The tricuspid valve is grossly normal. There is trace tricuspid regurgitation. Pulmonic Valve: The pulmonic valve is not well visualized. There is no color Doppler evidence of pulmonic valve regurgitation. Pericardium: Normal pericardium with no significant pericardial effusion. Aorta: The aortic root at the level of the sinus of Valsalva measures 2.7 cm in diameter. IVC: Normal size and normal respiratory collapse consistent with normal right atrial pressure (<5 mmHg). CONCLUSIONS: Normal biventricular size and systolic function. There is left ventricular diastolic dysfunction that is grade 2. No significant valvular disease. Electronically Signed By: Dr. Chapito Peres 2024-10-31 12:24:44 CUTTER WET MACHINE Procedure Note Chapito Peres MD - 10/31/2024 [facility] Cardiology [address] [facility] [address], [place] [address] [address] [facility] [address], [place] [address] P:[phone] P:[phone] Echocardiographic Report Patient Name: CHARISSE GRESHAM L : 1950 Study Date: 10/31/2024 8:44:51 AM Gender: F Tech: Location: [place] Ref Provider: GABRIELE FERNANDES Height(Cm): 152 BSA: 1.62 Weight(Kg): 62.1 Heart Rate: 85 BP: 156 / 80 Quality: Good Order Provider: GABRIELE FERNANDES PROCEDURES: Echocardiographic Report: Transthoracic echocardiogram with complete 2D, M-Mode, and color Dopplerexamination. With Strain Analysis. INDICATIONS: R55 Syncope and collapse. Measurements: 2D/M ModeDoppler Measurement Value Normal Range Measurement ValueNormal Range LVIDd 2D 3.04 [ 3.80 - 5.20 ] cm TIFFANY Vmax 2.70[ 2.00 - 4.00 ] cm2 LVIDs 2D 1.98 [ 2.20 - 3.50 ] cm AV Mean PG 5mmHg LVPWd 2D 1.16 [ 0.60 - 0.90 ] cm AV Peak Anthony 1.40[ 1.00 - 1.70 ] m/s IVSd 2D 1.25 [ 0.60 - 0.90 ] cm AV Peak PG 8mmHg LA Volume Index 21 [ 16 - 34 ] cc/m2 AV VTI 27.58cm ___ ___ ___ LVOT Diam 1.99[ 1.70 - 2.10 ] cm ___ ___ ___ LVOT Peak Anthony 1.21[ 0.70 - 1.10 ] m/s ___ ___ ___ LVOT VTI 29.17cm ___ ___ ___ MV E Peak Anthony 0.66[ 0.60 - 1.30 ] m/s ___ ___ ___ MV A Peak Anthony 0.96[ 1.00 - 1.20 ] m/s ___ ___ ___ MV Decel Time 200[ 104 - 258 ] msec ___ ___ ___ Lateral E` 0.07[ 0.10 - 0.15 ] m/s ___ ___ ___ E` 0.04m/s E/E` 10 Measurement Value Normal Range Measurement ValueNormal Range 2D/M ModeDoppler - FINDINGS: Interpretation Site: Exam was interpreted at [facility]. Left Ventricle: Ejection fraction is measured at 66 %. Global Longitudinal Strain is -19%. The left ventricular size and systolic function is normal. There is concentric leftventricular remodeling. The left ventricular ejection fraction is visually estimatedto be 60-65%. Right Ventricle: The right ventricle is normal in size and systolic function. Left Atrium: The left atrium is normal in size. Right Atrium: The right atrium is normal in size. Atrial Septum: The atrial septum is not well visualized. Mitral Valve: The mitral valve leaflets are thickened. There is trace mitralregurgitation. Aortic Valve: The aortic valve is probably trileaflet. It opens well and there is noaortic regurgitation. Tricuspid Valve: The tricuspid valve is grossly normal. There is trace tricuspidregurgitation. Pulmonic Valve: The pulmonic valve is not well visualized. There is no color Dopplerevidence of pulmonic valve regurgitation. Pericardium: Normal pericardium with no significant pericardial effusion. Aorta: The aortic root at the level of the sinus of Valsalva measures 2.7 cm indiameter. IVC: Normal size and normal respiratory collapse consistent with normal rightatrial pressure (<5 mmHg). CONCLUSIONS: Normal biventricular size and systolic function. There is left ventricular diastolic dysfunction that is grade 2. No significant valvular disease. Electronically Signed By: Dr. Chapito Peres 2024-10-31 12:24:44 CUTTER WET MACHINE Gabriele Fernandes MD CV ECHO PROCEDURES Final Result from Last 3 Months Insurance MEDICARE MEDICARE [facility] MEDICARE SUPPLEMENT Care Teams Retirement Administrator Relationship Specialty Start Date End Date Feng George PA [address] [place] [address] PCP - General Physician Supervisor Model Making 03/07/21 Walter Patrick MD [address] [place] [address] 02/08/17
--- OUTSIDE RECORDS SUMMARY | 2024-11-15 01:56 | XMS_ITS | Encounter Summary ---
Author Organization [facility] Address [address] [facility] [address] [place] [address] Care Team Providers Care Contract Recruiter Name Role Phone Walter Patrick MD Unavailable [phone] Feng George Primary Care Provider [phone] Reason for Visit * Cardiology (Routine) - Closed Specialty Diagnoses / Procedures Referred By Contac t Referred To Contact Diagnoses Essential hypertension Tachycardia, unspecified Dizziness BERGER (dyspnea on exertion) Family history of premature coronary artery disease Procedures Echo Exercise Stress Test Only Mauricio Miller MD Phone: tel: fax: Referral ID Status Reason Start Date Expiration Date Visits Re quested Visits Authorized [id number] Closed 03/19/2021 04/18/2022 1 1 Encounter Details Date Type Department Care Team (Latest Contact Info) Description 04/10/2021 10:15 AM CDT Ancillary Procedure [facility] Cardiology [address] [facility] [address] [place] [phone] Essential hypertension; Tachycardia, unspecified; Dizziness; BERGER (dyspnea on exertion); Family history of premature coronary artery disease Social History Tobacco Use Types Packs/Day Years Used Date Smoking Tobacco: Never Comments Unknown Sex and Gender Information Value Date Recorded Sex Assigned at Not on file Legal Sex Female 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 Gender Identity Not on file Sexual Orientation Not on file documented as of this encounter Plan of Treatment Not on file documented as of this encounter Procedures Procedure Name Priority Date/Time Associated Diagnosis Comments STRESS ECHO EXERCISE WO DOPPLER/CF WO CONTRAST Routine 04/10/2021 11:05 AM CDT Essential hypertension Tachycardia, unspecified Dizziness BERGER (dyspnea on exertion) Family history of premature coronary artery disease documented in this encounter Results * STRESS ECHO EXERCISE WO DOPPLER/CF WO CONTRAST (04/10/2021 11:05 AM CDT) Anatomical Region Laterality Modality Ultrasound 04/10/2021 10:1 0 AM CDT Narrative 04/10/2021 2:17 PM CDT [facility] Cardiology [address], [place] [address] [address] [facility] [address], [place] [address] [phone] P:[phone] Echocardiographic Report Patient Name: DALTON GRESHAM : 1950 Study Date: 04/10/2021 10:10:53 AM Gender: F Tech: Location: [place] Ref.Provider: VICENTE Height(Cm): 152 BSA: 1.61 Weight(Kg): 63.96 Heart Rate: 94 BP: 144/78 Quality: Good Order Provider: MAURICIO MILLER Procedures: Stress Echo Report: Treadmill stress echocardiogram. Indications: Dizziness, Dyspnea on Exertion, Family history of coronary artery disease, Hypertension, Tachycardia, Medications: Xanax, Elavil, Lozol, Claritin, Cozaar, protonix, Premarin, Zocor, and Stress test monitored by: Sierra Boland RN, BSN. Findings: Stress Echo: Protocol - Gregory Protocol. Exercise Time - 6.27 min. Baseline Heart Rate - 94. Peak Heart Rate - 155. Predicted Maximal Heart Rate - 150. 85% MPHR - 128. Baseline BP - 144/78. Peak BP - 146/60. Rate Pressure Product - 82965. METS Achieved - 7.00. Percent Predicted Maximal HR Achieved - 103 %. Interpretation Site: Exam was interpreted at [facility]. Performance: Above average exercise functional capacity. Hemodynamic Response: Blunted blood pressure response. Arrhythmia: No exercise induced arrhythmias. Termination: Leg Fatigue. Resting ECG: Normal EKG. Exercise ECG: Normal exercise ECG. Resting LV Function: Normal left ventricular size, normal systolic function, normal wall thickness with no segmental wall motion abnormalities at rest. Post Stress LV Function: Post exercise left ventricular global systolic contractility is hyperdynamic, no segmental wall motion abnormalities, and chamber size is smaller. Global Systolic Function is normal. Conclusions: Blunted blood pressure response. No exercise induced arrhythmias. No significant exercise induced arrhythmias. No exercise induced chest pain. No ECG evidence of ischemia. No Echocardiographic evidence of ischemia. Above average exercise capacity. Electronically Signed By: Walter Miller MD 2021-04-10 14:16:57 CDT Procedure Note Mauricio Miller MD - 04/10/2021 [facility] Cardiology [address] [facility] [address], [place] [address] [address] [facility] [address], [place] [address] P:[phone] P:[phone] Echocardiographic Report Patient Name: DALTON GRESHAMPatient ID: [id number] : [id number] Date: 04/10/2021 10:10:53 AM Gender: FAccession #: [id number] Tech: GMLocation: [place] Ref.Provider: Emeterioight(Cm): 152 BSA: 1.61Weight(Kg): 63.96 Heart Rate: 94BP: 144/78 Quality: GoodOrder Provider: MAURICIO MILLER Procedures: Stress Echo Report: Treadmill stress echocardiogram. Indications: Dizziness, Dyspnea on Exertion, Family history of coronary artery disease,Hypertension, Tachycardia, Medications: Xanax, Elavil, Lozol, Claritin, Cozaar,protonix, Premarin, Zocor, and Stress test monitored by: Sierra Boland RN, BSN. Findings: Stress Echo: Protocol - Gregory Protocol. Exercise Time - 6.27 min. Baseline Heart Rate -94. Peak Heart Rate - 155. Predicted Maximal Heart Rate - 150. 85% MPHR - 128. BaselineBP - 144/78. Peak BP - 146/60. Rate Pressure Product - 95003. METS Achieved - 7.00.Percent Predicted Maximal HR Achieved - 103 %. Interpretation Site: Exam was interpreted at [facility]. Performance: Above average exercise functional capacity. Hemodynamic Response: Blunted blood pressure response. Arrhythmia: No exercise induced arrhythmias. Termination: Leg Fatigue. Resting ECG: Normal EKG. Exercise ECG: Normal exercise ECG. Resting LV Function: Normal left ventricular size, normal systolic function, normal wallthickness with no segmental wall motion abnormalities at rest. Post Stress LV Function: Post exercise left ventricular global systolic contractility ishyperdynamic, no segmental wall motion abnormalities, and chamber size is smaller. GlobalSystolic Function is normal. Conclusions: Blunted blood pressure response. No exercise induced arrhythmias. No significant exercise induced arrhythmias. No exercise induced chest pain. No ECG evidence of ischemia. No Echocardiographic evidence of ischemia. Above average exercise capacity. Electronically Signed By: Walter Miller MD 2021-04-10 14:16:57 CDT Mauricio Miller MD CV ECHO PROCEDURES Final Result documented in this encounter Visit Diagnoses Diagnosis Essential hypertension Unspecified essential hypertension Tachycardia, unspecified Dizziness Dizziness and giddiness BERGER (dyspnea on exertion) Other dyspnea and respiratory abnormality Family history of premature coronary artery disease Family history of ischemic heart disease documented in this encounter Care Teams Contract Recruiter Relationship Specialty Start Date End Date Feng George PA [address] [facility] [address] [place] [address] PCP - General Physician Track Sweeper 03/07/21 [place] [address] 02/08/17 documented as of this encounter
--- OUTSIDE RECORDS SUMMARY | 2024-11-15 01:56 | XMS_ITS | Encounter Summary ---
Author Organization [facility] Healthcare Address [address] [place] [address] Care Team Providers Care Pt Sitter Name Role Phone Walter Patrick MD Unavailable [phone] Feng George Primary Care Provider [phone] Reason for Visit * Cardiology (Routine) - Closed Specialty Diagnoses / Procedures Referred By Contac t Referred To Contact Diagnoses Syncope and collapse Procedures Transthoracic Echo (TTE) Complete W Doppler/CF Gabriele Fern[place] [address] Phone: tel: fax: [facility] Cardiology [address] [facility] [address] [place] [id number] Phone: tel: fax: Referral ID Status Reason Start Date Expiration Date Visits Re quested Visits Authorized [id number] Closed 10/23/2024 11/22/2025 1 1 Encounter Details Date Type Department Care Team (Latest Contact Info) Description 10/31/2024 8:15 AM DEVELOPMENT PROFESSIONAL Ancillary Procedure [facility] Cardiology [address] [facility] [address] [place] [phone] Syncope and collapse Social History Tobacco Use Types Packs/Day Years Used Date Smoking Tobacco: Never Comments Unknown Sex and Gender Information Value Date Recorded Sex Assigned at Not on file Legal Sex Female 12:03 AM DEVELOPMENT PROFESSIONAL Gender Identity Not on file Sexual Orientation Not on file documented as of this encounter Last Filed Vital Signs Vital Sign Reading Time Taken Comments Blood Pressure 156/80 10/31/2024 9:03 AM DEVELOPMENT PROFESSIONAL Pulse - - Temperature - - Respiratory Rate - - Oxygen Saturation - - Inhaled Oxygen Concentration - - Weight - - Height - - Body Mass Index - - documented in this encounter Plan of Treatment Not on file documented as of this encounter Procedures Procedure Name Priority Date/Time Associated Diagnosis Comments TRANSTHORACIC ECHO (TTE) COMPLETE W DOPPLER/CF WO CONTRAST Routine 10/31/2024 9:03 AM DEVELOPMENT PROFESSIONAL Syncope and collapse documented in this encounter Results * TRANSTHORACIC ECHO (TTE) COMPLETE W DOPPLER/CF WO CONTRAST (10/31/2024 9:03 AM DEVELOPMENT PROFESSIONAL) Anatomical Region Laterality Modality Ultrasound 10/31/2024 8:44 AM DEVELOPMENT PROFESSIONAL Narrative 10/31/2024 12:25 PM DEVELOPMENT PROFESSIONAL [facility] Medical Group Cardiology [address] [facility] [address], [place] [address] [address] [facility] [address], [place] [address] P:[phone] P:[phone] Echocardiographic Report Patient Name: DALTON GRESHAM L : 1950 Study Date: 10/31/2024 8:44:51 AM Gender: F Tech: Location: [facility] Provider: GABRIELE FERNANDES Height(Cm): 152 BSA: 1.62 [...] FINDINGS: Interpretation Site: Exam was interpreted at [facility]. Left Ventricle: Ejection fraction is measured at [...] Signed By: Dr. Chapito Peres 2024-10-31 12:24:44 DEVELOPMENT PROFESSIONAL Procedure Note Chapito Peres MD - 10/31/2024 [facility] Cardiology [address] [facility] [address] [address] [address] [facility] [address], [place] [address] P:[phone] P:[phone] Echocardiographic Report Patient Name: DALTON GRESHAM L : 1950 Study Date: 10/31/2024 8:44:51 AM Gender: F Tech: KRYSTEN Location: [place] Ref Provider: GABRIELE FERNANDES Height(Cm): 152 BSA: [...] FINDINGS: Interpretation Site: Exam was interpreted at [facility]. Left Ventricle: Ejection fraction is measured at [...] Signed By: Dr. Chapito Peres 2024-10-31 12:24:44 DEVELOPMENT PROFESSIONAL us Gabriele Fernandes MD CV ECHO PROCEDURES Final Result documented in this encounter Visit Diagnoses Diagnosis Syncope and collapse documented in this encounter Care Teams Pt Sitter Relationship Specialty Start Date End Date Feng George PA [address] [facility] [address] [place] [address] PCP - General Physician Apartment Maintenance Manager 03/07/21 Walter Patrick MD [address] [place] [id number] 02/08/17 documented as of this encounter
--- OUTSIDE RECORDS SUMMARY | 2024-11-15 01:56 | XMS_ITS | Encounter Summary ---
Author Organization [facility] Address [address] [place] [address]. [place] [address] [place] [address] Care Team Providers Care Overhauler Bus Truck Name Role Phone Unavailable Primary Care Provider Unavailabl e Encounter Details Date Type Department Care Team (Late st Contact Info) Description 07/22/2004 Abstract [facility] [place] [address] Fred Cardenas MD [address] [place] [address] Social History Tobacco Use Types Packs/Day Years [...]
--- OUTSIDE RECORDS SUMMARY | 2024-11-15 01:56 | XMS_ITS | Encounter Summary ---
Author Organization [facility] Address [address] [place] [address]. [place] [address] [place] [address] Care Team Providers Care Tariff Expert Name Role Phone Unavailable Primary Care Provider Unavailabl e Encounter Details Date Type Department Care Team (Late st Contact Info) Description 07/01/2005 Abstract [facility] [address] [place], [place] [id number] Social History Tobacco Use Types Packs/Day Years [...]
--- OUTSIDE RECORDS SUMMARY | 2024-11-15 01:56 | XMS_ITS | Encounter Summary ---
Author Organization [facility] Address [address] [facility] [address] [place] [address] Care Team Providers Care Sole Inker Name Role Phone Walter Patrick MD Unavailable [phone] Feng George Primary Care Provider [phone] Reason for Visit * Cardiology (Routine) - Closed Specialty Diagnoses / Procedures Referred By Contac t Referred To Contact Diagnoses Fatigue, unspecified type BERGER (dyspnea on exertion) Procedures Transthoracic Echo Complete W Doppler/CF Adams Ellison NP [address] [address] Phone: tel: fax: [facility] Referral ID Status Reason Start Date Expiration Date Visits Re quested Visits Authorized [id number] Closed 04/14/2021 05/14/2022 1 1 Encounter Details Date Type Department Care Team (Latest Contact Info) Description 05/01/2021 2:00 PM CDT Ancillary Procedure [facility] Cardiology [address] [address] Fatigue, unspecified type; BERGER (dyspnea on exertion) Social History Tobacco Use Types Packs/Day Years Used Date Smoking Tobacco: Never Comments Unknown Sex and Gender Information Value Date Recorded Sex Assigned at Not on file 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 Gender Identity Not on file Sexual Orientation Not on file documented as of this encounter Last Filed Vital Signs Vital Sign Reading Time Taken Comments Blood Pressure 158/80 05/01/2021 2:26 PM CDT Pulse - - Temperature - - Respiratory Rate - - Oxygen Saturation - - Inhaled Oxygen Concentration - - Weight - - Height - - Body Mass Index - - documented in this encounter Plan of Treatment Not on file documented as of this encounter Procedures Procedure Name Priority Date/Time Associated Diagnosis Comments TRANSTHORACIC ECHO (TTE) COMPLETE W DOPPLER/CF W CONTRAST Routine 05/01/2021 2:45 PM CDT Fatigue, unspecified type BERGER (dyspnea on exertion) documented in this encounter Results * TRANSTHORACIC ECHO (TTE) COMPLETE W DOPPLER/CF W CONTRAST (05/01/2021 2:45 PM CDT) Anatomical Region Laterality Modality Ultrasound 05/01/2021 1:44 PM CDT Narrative 05/01/2021 3:45 PM CDT [facility] Cardiology [address] [facility] [address], [place] [address] [address] [facility] [address], [place] [address] P:[phone] P:[phone] Echocardiographic Report Patient Name: DALTON GRESHAM : 1950 Study Date: 05/01/2021 1:44:44 PM Gender: F Tech: Location: [place] Ref.Provider: FENG GEORGE Height(Cm): 152 BSA: 1.61 [...] - 1.00 ] cm ?MV E [place] ?0.87 ? [ 0.60 - 1.30 ] [...] Findings: Interpretation Site: Exam was interpreted at [facility]. Left Ventricle: Normal left ventricular systolic function. [...] Procedure Note Mauricio Miller MD - 05/01/2021 [facility] Cardiology [address] [facility] [address], [place] [address] [address] [facility] [address], [place] [address] P:[phone] P:[phone] Echocardiographic Report Patient Name: DALTON GRESHAMPatient ID: [id number] : [id number] Date: 05/01/2021 1:44:44 PM Gender: FAccession #: [id number] Tech: SWLocation: [place] Ref.Provider: Caio GEORGE(Cm): 152 BSA: 1.61Weight(Kg): 63.96 [...] Findings: Interpretation Site: Exam was interpreted at [facility]. Left Ventricle: Normal left ventricular systolic function. [...] this encounter Visit Diagnoses Diagnosis Fatigue, unspecified type BERGER (dyspnea on exertion) Other dyspnea and respiratory abnormality documented in this encounter Administered Medications Inactive Administered Medications - up to 3 most recent administrations Medication Order MAR Action Action Date Dose Rate Site perflutren lipid (DEFINITY) 1.5 mL in sodium chloride 0.9% 10 mL syringe 1-10 mL, intravenous, Once in imaging, contrast, Starting on Kiki 05/01/21 at 1426, For 1 dose Contrast Given 05/01/2021 2:38 PM CDT 1 mL documented in this encounter Orders Medications Ordered That Jose ht Not Have Been Administered Count Last Ordered Date First Ordered Date perflutren lipid (DEFINITY) 1.5 mL in sodium chloride 0.9% 10 mL syringe 1 05/01/2021 documented in this encounter Care Teams Sole Inker Relationship Specialty Start Date End Date Feng George PA [address] [place] [address] PCP - General Physician Cad Draftsman 03/07/21 Walter [place] [address] 02/08/17 documented as of this encounter
--- OUTSIDE RECORDS SUMMARY | 2024-11-15 01:56 | XMS_ITS | Clinical Summary ---
Author Organization [facility] Address [address] [place] [address]. [place] [address] [place] [address] Care Team Providers Care Packer Denture Name Role Phone Unavailable Primary Care Provider Unavailabl e Social History Tobacco Use Types Packs/Day Years Used Date Smoking Tobacco: Never Assessed Comments Unknown Sex and Gender Information Value Date Recorded Sex Assigned at Not on file Legal Sex Female 6:04 PM CDT Gender Identity Not on file Sexual Orientation Not on file Plan of Treatment Health Maintenance Due Date Last Done Comments Colorectal Cancer Screening Colonoscopy (10 Years) 1950 Hepatitis C 1969 DTaP, Tdap and Td Vaccines ( 1 - Tdap) 1970 Mammogram Screening 1991 Zoster Vaccines (1 of 2) 2001 RSV Immunization or 60+ Years (1 - 1-dose 60+ series) 2011 Dexa Scan (General) 2016 Pneumococcal Vaccine: 65+ Ye ars (1 of 1 - PCV) 2016 COVID-19 Vaccine (2023-2 5 season) 2024 Influenza Adult (#1) 2024 Meningococcal Vaccine Aged Out No hui yvette eligible based on patient's age to complete this topic RSV Immunizations Under 20 Months Aged Out No longer eligible based on patient's age to complete this topic
--- OUTSIDE RECORDS SUMMARY | 2024-11-15 01:56 | XMS_ITS | Encounter Summary ---
Author Organization [facility] Address [address] [place] [address]. [place] [address] [place] [address] Care Team Providers Care Electric Meter Repairer Apprentice Name Role Phone Unavailable Primary Care Provider Unavailabl e Encounter Details Date Type Department Care Team (Late st Contact Info) Description 06/26/2004 Abstract [facility] [place] [address] Social History Tobacco Use Types Packs/Day Years [...]
--- OUTSIDE RECORDS SUMMARY | 2024-11-15 01:56 | XMS_ITS | Encounter Summary ---
Author Organization [facility] Address [address] [facility] [address] [place] [address] Care Team Providers Care Psychology Clinician Name Role Phone Walter Patrick MD Unavailable [phone] Feng George Primary Care Provider [phone] Encounter Details Date Type Department Care Team (Late st Contact Info) Description 05/02/2021 Telephone [facility] Cardiology [address] [place] [address] Alexia Steve NP [address] [place] [address] Social History Tobacco Use Types Packs/Day Years Used Date Smoking Tobacco: Never Comments Unknown Sex and Gender Information Value Date Recorded Sex Assigned at Not on file 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 Pt verbalized understanding. Orders for PFT place and faxedto siobhan. Gave pt number to them, she will call them on Wednesday to schedule * Telephone Encounter - Sierra Boland RN - 05/02/2021 1:23 PM CDT ----- Message from Alexia Steve NP sent at 05/02/2021 12:37 PM CDT ----- Please call pt to let her know Dr. Miller reviewed her echo - good news, no abnormalities were seen. There is mild mitral valve regurgitation, but this would not cause her symptoms. Dr. Miller and I next recommend getting PFT's to assess for abnormality of lung function. Hopefully this can be done before her follow up visit with Dr. Miller later this month. THanks. documented in this encounter Plan of Treatment Not on file documented as of this encounter Visit Diagnoses Diagnosis BERGER (dyspnea on exertion)- Primary Other dyspnea and respiratory abnormality documented in this encounter Care Teams Psychology Clinician Relationship Specialty Start Date End Date Feng George PA [address] [facility] [address] [place] [address] PCP - General Physician In Shop Service Technician 03/07/21 Walter Patrick MD [address] [place] [address] 02/08/17 documented as of this encounter
--- OUTSIDE RECORDS SUMMARY | 2024-11-15 01:56 | XMS_ITS | Encounter Summary ---
Author Organization [facility] Address [address] [facility] [address] [place] [address] Care Team Providers Care Boatswains Mate Name Role Phone Walter Patrick MD Unavailable [phone] Feng George Primary Care Provider [phone] Reason for Visit * Reason Comments Follow-up 1 month f/u. Had an echo on 05/01/21. C/o BP being all over the place. BERGER Fatigue Encounter Details Date Type Department Care Team (Late st Contact Info) Description 05/22/2021 12:30 PM CDT Office Visit [facility] Cardiology [address] [facility] [address] [place] [address] Mauricio Miller MD [address] [facility] [address] [place] [address] Essential hypertension (Primary Dx); BERGER (dyspnea on exertion); Family history of premature coronary artery disease; Chronic fatigue; Dizziness Social History Tobacco Use Types Packs/Day Years Used Date Smoking Tobacco: Never Comments Unknown Sex and Gender Information Value Date Recorded Sex Assigned at Not on file 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 Gender Identity Not on file Sexual Orientation Not on file documented as of this encounter Last Filed Vital Signs Vital Sign Reading Time Taken Comments Blood Pressure 138/70 05/22/2021 12:43 PM CDT Pulse 83 05/22/2021 12:43 PM CDT Temperature - - Respiratory Rate - - Oxygen Saturation 99% 05/22/2021 12:43 PM CDT Inhaled Oxygen Concentration - - Weight 62.4 kg (137 lb 8 oz) 05/22/2021 12:43 PM CDT Height 152.4 cm (5') 05/22/2021 12:43 PM CDT Body Mass Index 26.85 05/22/2021 12:43 PM CDT documented in this encounter Progress Notes * Mauricio Miller MD - 05/22/2021 12:30 PM CDT Images from the original note were not included. DATE OF VISIT: 05/22/2021 CHIEF COMPLAINT Chief Complaint Patient presents with ??? Follow-up 1 month f/u. Had an echo on 05/01/21. C/o BP being all over the place. ??? BERGER ??? Fatigue ASSESSMENT Diagnoses and all orders for this visit: Essential hypertension (Primary) BERGER (dyspnea on exertion) Family history of premature coronary artery disease Chronic fatigue Dizziness PLAN/RECOMMENDATIONS 1. BERGER and exercise intolerance remains a concern particularly given risk factors including hypertension, dyslipidemia, and family history of premature atherosclerosis. -stress echocardiogram study reviewed in great detail, all questions answered. Normal EKG and Echo response without ischemia, normal heart rate achieving 103% max predicted, no chest pain, 6 minutes 27 seconds on Gregory protocol but was blunted blood pressure response as reported. She inquired aboutthis we discussed this phenomenon and while this is not a normal response to exercise, the rest of her study or unremarkable. -2D echo with preserved LV function, grade 1 diastolic dysfunction, mild MR no significant pathology otherwise to explain her symptoms. -she has been encouraged along with her to monitor symptoms very closely, avoid dehydrationas heat tends to significantly worsen her symptoms activity tolerance. Counseled on the effects of medications, age and dehydration with regards to her symptom complex. -I checked BP in both arms there is no difference to suggest coarctation or obstruction, 2+ equal radial pulses bilaterally. No indication for CT angiogram of the chest. While she admits she has beenless active I have strongly encouraged her to increase consistent activity to begin with walking observe response and if worsening tolerance notify the office immediately. Patient and her verbalized understanding and agreed with plan of care. The appreciated by explanations and time spent. 2. BP stable, historically uncontrolled off indapamide. -Monitor BP on routine basis. Call with readings. Continue consistent cardiovascular exercise, weight loss, medication compliance, and low-sodium diet. -I also feel her medications are contributing to her position dizziness. Discussed the changes in her medical therapy may be required, however, this can get rather complicated and would not be recommended until other explanations have been excluded. 3. Lifestyle modification counseling performed. Weight loss, exercise, reduction in caloric intake. 4. Lipids personally reviewed in office 03/19/21 LDL 78, well controlled goal LDL<100. Continue Simvastatin therapy and lifestyle modification. 5. JACINDA remains a consideration regarding poor sleep, fatigue, snoring and possible apneic spells asdescribed. Sleep study may be pursued if sxs persist. My total encounter time on 05/22/2021 was 41 minutes which was spent in the activities documented inthe note. This includes time spent prior to the visit and after the visit in direct care of the patient. This time does not include time spent in any separately reportable services. Patient verbalized understanding of the above recommendations and agreed to plan of care. Further recommendations to follow. Over 50% of this visit counseling BERGER, tachycardia, HTN, lipids, medications, lifestyle modification. Follow up in the office in 2 months or sooner as needed. Thank you for allowing me the privilege of participating in the care this very pleasant patient. Please do not hesitate to contact me with any additional questions or concerns. HPI Charisse Valderrama is a 71 y.o. 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 Losartan [...] closing when pushing fertilizer once. Given Xanax. 05/22/21 she notes ongoing fatigue, shortness of breath and arm weakness bilaterally if carrying a heavy object. She denies chest pain patient notes occasional dizziness but no falls. She notes she has particularly affected with heat when outdoors. She has not been quite as active in general and feels her conditioning is not were used be. She underwent echo and stress echo which were essentially unremarkable. She inquired about blunted blood pressure response which we discussed at length. No edema, palpitations, fevers, chills, bright red blood per rectum, melena. She is accompanied by her . MEDICAL HISTORY Past Medical History: Diagnosis Date ??? Arthritis ??? Cataract ??? Dizziness ??? GERD (gastroesophageal reflux disease) ??? Sinusitis ??? Thyroid disease SOCIAL HISTORY reports that she has never smoked. She does not have any smokeless tobacco history on file. She reports current drug use. Drug: Alcohol. FAMILY HISTORY family history includes ALS in her father; Arthritis in her father; Cardiac Cath in her mother; Heart disease in her mother; Hypertension in her mother; Pneumonia in her father. MEDICATIONS HOME MEDICATIONS : ALPRAZolam (XANAX) 2 mg tablet amitriptyline (ELAVIL) 75 mg tablet estrogens, conjugated, (Premarin) 0.45 mg tablet indapamide (LOZOL) 1.25 mg tablet loratadine (CLARITIN) 10 mg tablet losartan (COZAAR) [address] (PROTONIX) 40 mg EC tablet simvastatin (ZOCOR) 20 mg tablet ALLERGIES No Known Allergies REVIEW OF SYSTEMS Review of Systems Constitutional: Positive for malaise/fatigue and weight loss. Negative for decreased appetite, diaphoresis, fever, night sweats and weight gain. HENT: Negative for hearing loss and nosebleeds. Eyes: Negative for blurred vision and pain. Cardiovascular: Positive for dyspnea on exertion. Negative for chest pain, claudication, irregular heartbeat, leg swelling, near-syncope, orthopnea, palpitations and syncope. Respiratory: Negative for cough, hemoptysis, shortness of breath, snoring and wheezing. Endocrine: Negative for cold intolerance and heat intolerance. Hematologic/Lymphatic: Negative for bleeding problem. Does not bruise/bleed easily. Skin: Negative for color change, itching, rash and suspicious lesions. Musculoskeletal: Positive for joint pain. Negative for falls, muscle weakness and myalgias. Gastrointestinal: Negative for abdominal pain, heartburn, hematemesis, melena and nausea. Genitourinary: Negative for dysuria, hematuria and nocturia. Neurological: Positive for dizziness and light-headedness. Negative for excessive daytime sleepiness, focal weakness, headaches, loss of balance and weakness. Psychiatric/Behavioral: Negative for altered mental status, depression and memory loss. The patientis not nervous/anxious. Allergic/Immunologic: Negative for environmental allergies. PHYSICAL EXAM Vitals BP 138/70 (BP Location: Left arm, Patient Position: Sitting) Pulse 83 Ht 152.4 cm (5') Wt 62.4 kg (137 lb 8 oz) SpO2 99% BMI 26.85 kg/m?? Weight: 62.4 kg (137 lb 8 oz) Height: 152.4 cm (5') Body mass index is 26.85 kg/m??. Physical Exam Constitutional: General: She is not in acute distress. Appearance: She is well-developed. She is not diaphoretic. HENT: Head: Normocephalic and atraumatic. Right Ear: External ear normal. Left Ear: External ear normal. Nose: Nose normal. Mouth/Throat: Dentition: Normal dentition. Eyes: General: Lids are normal. No scleral icterus. Conjunctiva/sclera: Conjunctivae normal. Neck: Thyroid: No thyromegaly. Vascular: Normal carotid pulses. No carotid bruit, hepatojugular reflux or JVD. Trachea: No tracheal deviation. Cardiovascular: Rate and Rhythm: Normal rate and regular rhythm. Pulses: Normal pulses and intact distal pulses. Heart sounds: Normal heart sounds, S1 normal and S2 normal. Heart sounds not distant. No murmur heard. No friction rub. No gallop. No S3 or S4 sounds. Pulmonary: Effort: Pulmonary effort is normal. No respiratory distress. Breath sounds: Normal breath sounds. No wheezing or rales. Chest: Chest wall: No tenderness. Abdominal: General: Bowel sounds are normal. There is no distension. Palpations: Abdomen is soft. There is no mass. Tenderness: There is no abdominal tenderness. There is no guarding or rebound. Musculoskeletal: General: No tenderness or deformity. Normal range of motion. Cervical back: Normal range of motion and neck supple. Lymphadenopathy: Cervical: No cervical adenopathy. Skin: General: Skin is warm and dry. Coloration: Skin is not pale. Findings: No ecchymosis, erythema, petechiae or rash. Nails: There is no clubbing. Neurological: Mental Status: She is alert and oriented to person, place, and time. Cranial Nerves: No cranial nerve deficit. Motor: No abnormal muscle tone. Coordination: Coordination normal. Psychiatric: Speech: Speech normal. Behavior: Behavior normal. Behavior is cooperative. Judgment: Judgment normal. LABS AND OTHER DIAGNOSTIC TESTS 04/10/21 Stress Echo: Procedures: Stress Echo Report: Treadmill stress echocardiogram. [...] BP - 146/60. Rate Pressure Product - 21675. METS Achieved - 7.00. Percent Predicted Maximal HR Achieved - 103 %. Interpretation Site: Exam was interpreted at [facility]. Performance: Above average exercise functional capacity. Hemodynamic [...] evidence of ischemia. Above average exercise capacity. 05/01/21 2D Echo: Conclusions: Normal left ventricular systolic function. No [...] Mild mitral valve regurgitation. Normal sinus rhythm. I have personally reviewed EKG, electronic medical record, and bloodwork/lipids. Walter Miller MD, [facility] This note is dictated and transcribed using [employer] Direct Software. Roofing Subcontractor variancesmay occur. Despite proofreading, typographical errors may occur. documented in this encounter Plan of Treatment Not on file documented as of this encounter Visit Diagnoses Diagnosis Essential hypertension- Primary Unspecified essential hypertension BERGER (dyspnea on exertion) Other dyspnea and respiratory abnormality Family history of premature coronary artery disease Family history of ischemic heart disease Chronic fatigue Other malaise and fatigue Dizziness Dizziness and giddiness documented in this encounter Care Teams Boatswains Mate Relationship Specialty Start Date End Date Feng George PA [address] [facility] [address] [place] [address] PCP - General Physician Diesel Locomotive Firer 03/07/21 Walter [place] [address] 02/08/17 documented as of this encounter
--- OUTSIDE RECORDS SUMMARY | 2024-11-15 01:56 | XMS_ITS | Clinical Summary ---
Author Organization [facility], [facility] Address [address] [place] [address] Care Team Providers Care Strings Teacher Name Role Phone Walter Patrick MD Unavailable [phone] Feng George Primary Care Provider [phone] Allergies No known active allergies Medications losartan [...] of premature coronary artery dise ase 03/19/2021 Encounters Date Type Department Care Team Description 10/31/2024 8:15 AM RESP THERAPIST Ancillary Procedure [facility] Cardiology [address] [place] [address] Syncope and collapse from Last 3 Months Surgical History Surgery Date Site/Laterality Comments SECTION x2 GALLBLADDER SURGERY EYE SURGERY FRACTURE SURGERY COSMETIC SURGERY HYSTERECTOMY PARATHYROID GLAND SURGERY Medical History Medical History Date Comments Thyroid disease Sinusitis Dizziness GERD (gastroesophageal reflux disease) Cataract Arthritis Family History Medical History Relation Name Comments ALS Father Family history of amyotrophic lateral sclerosis - (Added by TW Conv) Arthritis Father Family history of arthritis - (Added by TW Conv) Pneumonia Father Cardiac Cath Mother Heart disease Mother Hypertension Mother Family history of hypertension - (Added by TW Conv) Relation Name Status Comments Brother 1 Alive Brother 2 Alive Brother 3 Alive Brother 4 Alive Father (Age 45) Mother (Age 53) Sister 1 Alive Sister 2 Alive Social History Tobacco Use Types Packs/Day Years Used Date Smoking Tobacco: Never Comments Unknown Sex and Gender Information Value Date Recorded Sex Assigned at Not on file Legal Sex Female 12:03 AM RESP THERAPIST Gender Identity Not on file Sexual Orientation Not on file Obstetrics History Last Filed Vital Signs Vital Sign Reading Time Taken Comments Blood Pressure 156/80 10/31/2024 9:03 AM RESP THERAPIST Pulse 83 05/22/2021 12:43 PM CDT Temperature [...] DOPPLER/CF WO CONTRAST Routine 10/31/2024 9:03 AM RESP THERAPIST Syncope and collapse from Last 3 Months Results * TRANSTHORACIC ECHO (TTE) COMPLETE W DOPPLER/CF WO CONTRAST (10/31/2024 9:03 AM RESP THERAPIST) Anatomical Region Laterality Modality Ultrasound 10/31/2024 8:44 AM RESP THERAPIST Narrative 10/31/2024 12:25 PM RESP THERAPIST [facility] Cardiology [address], [place] [address] [address] [facility] [address], [place] [address] P:[phone] P:[phone] Echocardiographic Report Patient Name: DALTON GRESHAM L : 1950 Study Date: 10/31/2024 8:44:51 AM Gender: F Tech: Location: [place] Ref Provider: GABRIELE FERNANDES Height(Cm): 152 BSA: [...] FINDINGS: Interpretation Site: Exam was interpreted at [facility]. Left Ventricle: Ejection fraction is measured at [...] Signed By: Dr. Chapito Peres 2024-10-31 12:24:44 RESP THERAPIST Procedure Note Chapito Peres MD - 10/31/2024 [facility] Cardiology [address] [facility] [address], [place] [address] [address] [facility] [address], [place] [address] P:[phone] P:[phone] Echocardiographic Report Patient Name: DALTON GRESHAM L : 1950 Study Date: 10/31/2024 8:44:51 AM Gender: F Tech: Location: [facility] Provider: GABRIELE FERNANDES Height(Cm): 152 BSA: [...] FINDINGS: Interpretation Site: Exam was interpreted at [facility]. Left Ventricle: Ejection fraction is measured at [...] Signed By: Dr. Chapito Peres 2024-10-31 12:24:44 RESP THERAPIST us Gabriele Fernandes MD CV ECHO PROCEDURES Final Result from Last 3 Months Insurance MEDICARE MEDICARE BLUE CROSS MEDICARE SUPPLEMENT Care Teams Strings Teacher Relationship Specialty Start Date End Date Feng George PA [address] [address] PCP - General Physician Magazine Worker 03/07/21 Walter Patrick MD [address] [place] [address] 02/08/17
--- OUTSIDE RECORDS SUMMARY | 2024-11-15 01:57 | XMS_ITS | Encounter Summary ---
Author Organization [facility] Address [address] [facility] [address] [place] [address] Care Team Providers Care Nuclear Plant Construction Worker Name Role Phone Walter Patrick MD Unavailable [phone] Michael Bernabe MD Primary Care Provide r Feng George Primary Care Provider [phone] Encounter Details Date Type Department Care Team (Late st Contact Info) Description 03/06/[address] 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 Gender Identity Not on file Sexual Orientation Not on file documented as of this encounter Plan of Treatment Not on file documented as of this encounter Procedures Procedure Name Priority Date/Time Associated Diagnosis Comments CARDIOLOGY DOCUMENT SCAN Routine 03/06/2021 documented in this encounter Results * SCAN - CARDIOLOGY (03/06/2021) Anatomical Region Laterality Modality Other Historical Provider [facility] Final Result documented in this encounter Visit Diagnoses Not on filedocumented in this encounter Care Teams Nuclear Plant Construction Worker Relationship Specialty Start Date End Date Michael Bernabe MD [address] [place] [address] PCP - General Emergency Medicine 01/01/21 03/06/21 Feng George PA [address] [facility] [address] [place] [address] PCP - General Physician Supervisor Spinning 03/07/21 Walter Patrick MD [address] [place] [address] [place] [address] 02/08/17 documented as of this encounter
--- OUTSIDE RECORDS SUMMARY | 2024-11-15 01:57 | XMS_ITS | Encounter Summary ---
Author Organization [facility] Healthcare Address [address] [place] [address] Care Team Providers Care Family Nurse Name Role Phone Walter Patrick MD Primary Care Provider [phone] Walter Patrick MD Unavailable [phone] Encounter Details Date Type Department Care Team (Latest Contact Info) Description 02/08/2017 1:19 PM CDT - 02/08/2017 11:59 PM T Hospital Encounter [facility] OP INTERIM [phone] Eliecer Juarez MD [address] [facility] [address] [place] [address] Mayra Butt RN [address] [facility] [address] [place] [address] Discharge Disposition: Discharge to home or self care Social History Tobacco Use Types Packs/Day Years Used Date Smoking Tobacco: Never Comments Unknown Sex and Gender Information Value Date Recorded Sex Assigned at Not on file 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 Gender Identity Not on file Sexual Orientation Not on file documented as of this encounter Discharge Disposition Disposition Code Departure Means Destination Discharge to home or self care documented in this encounter Plan of Treatment Not on file documented as of this encounter Visit Diagnoses Not on filedocumented in this encounter Care Teams Family Nurse Relationship Specialty Start Date End Date Walter Patrick MD [address] [place] [address] PCP - General 02/08/17 08/05/17 Walter Patrick MD [address] [place] [address] 02/08/17 documented as of this encounter
--- OUTSIDE RECORDS SUMMARY | 2024-11-15 01:57 | XMS_ITS | Encounter Summary ---
Author Organization [facility] Address [address] [facility] [address] [place] [address] Care Team Providers Care Title Processor Name Role Phone Walter Patrick MD Unavailable [phone] Michael Bernabe MD Primary Care Provide r Reason for Visit * Reason Comments EKG visit * (Routine) - Closed Specialty Diagnoses / Procedures Referred By Contac t Referred To Contact Diagnoses Pre-operative clearance Procedures ECG 12 lead Michael Bernabe MD [address] [facility] [place] [address] Phone: tel: fax: [facility] Referral ID Status Reason Start Date Expiration Date Visits Re quested Visits Authorized [id number] Closed 01/01/2021 01/31/2022 1 1 Encounter Details Date Type Department Care Team (Latest Contact Info) Description 01/02/2021 10:00 AM GREY TENDER Procedure visit 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 Gender Identity Not on file Sexual Orientation Not on file documented as of this encounter Progress Notes * Gifty Langford MA - 01/02/2021 10:00 AM CST Pt was here on 01/02/21 for an EKG TENDER documented in this encounter Plan of Treatment Not on file documented as of this encounter Visit Diagnoses Diagnosis Pre-operative clearance Unspecified pre-operative examination documented in this encounter Orders EKG Orders Without Results Count Last Ordered D ate First Ordered Date ECG 12-LEAD 1 01/02/2021 documented in this encounter Care Teams Title Processor Relationship Specialty Start Date End Date Michael Bernabe MD [address] [place] [address] PCP - General Emergency Medicine 01/01/21 03/06/21 Walter Patrick MD [address] [place] [address] 02/08/17 documented as of this encounter
--- OUTSIDE RECORDS SUMMARY | 2024-11-15 01:57 | XMS_ITS | Encounter Summary ---
Author Organization [facility] Healthcare Address [address] [place] [address] Care Team Providers Care Office Services Representative Name Role Phone Walter Patrick MD Unavailable [phone] Walter Patrick MD Primary Care Provider [phone] Encounter Details Date Type Department Care Team (Latest Contact Info) Description 08/09/2017 12:37 PM CDT - 08/09/2017 1:45 PM T Hospital Encounter [facility] OP INTERIM [phone] [facility] [address] [place] [address] Discharge Disposition: Discharge to home or self care Social History Tobacco Use Types Packs/Day Years Used Date Smoking Tobacco: Never Comments Unknown Sex and Gender Information Value Date Recorded Sex Assigned at Not on file 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
--- OUTSIDE RECORDS SUMMARY | 2024-11-15 01:57 | XMS_ITS | Encounter Summary ---
Author Organization [facility] Address [address] [facility] [address] [place] [address] Care Team Providers Care Hand Buffer Name Role Phone Walter Patrick MD Unavailable [phone] Feng George Primary Care Provider [phone] Encounter Details Date Type Department Care Team (Late st Contact Info) Description 03/26/2021 Orders Only [facility] Cardiology [address] [facility] [address] [place] [address] Provider, MD Mitch [address] [place] [address] Social History Tobacco Use Types Packs/Day Years Used Date Smoking Tobacco: Never Comments Unknown Sex and Gender Information Value Date Recorded Sex Assigned at Not on file 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 Gender Identity Not on file Sexual Orientation Not on file documented as of this encounter Plan of Treatment Not on file documented as of this encounter Procedures Procedure Name Priority Date/Time Associated Diagnosis Comments LIPID PANEL Routine 06/07/2020 documented in this encounter Results * Lipid panel (06/07/2020) Blood specimen (specimen) Historical Provider LAB BLOOD ORDERABLES Holly l Result documented in this encounter Visit Diagnoses Not on filedocumented in this encounter Care Teams Hand Buffer Relationship Specialty Start Date End Date Feng George PA [address] [place] [address] PCP - General Physician Carpentry Specialist 03/07/21 Walter Patrick MD [address] [place] [address] 02/08/17 documented as of this encounter
--- OUTSIDE RECORDS SUMMARY | 2024-11-15 01:57 | XMS_ITS | Encounter Summary ---
Author Organization [facility] Healthcare Address [address] [place] [address] Care Team Providers Care Grants Assistant Name Role Phone Walter Patrick MD Unavailable [phone] Unknown, Notinfile Primary Care Provider Unavail able Encounter Details Date Type Department Care Team (Latest Contact Info) Description 08/06/2017 10:19 AM CDT - 08/06/2017 11:59 PM CDT Hospital Encounter [facility] OP INTERIM [phone] Eliecer Juarez MD [address] [facility] [address] [place] [address] Valente Jacinto RN [address] [facility] [address] [place] [address] Discharge Disposition: Discharge to home or self care Social History Tobacco Use Types Packs/Day Years Used Date Smoking Tobacco: Never Comments Unknown Sex and Gender Information Value Date Recorded Sex Assigned at Not on file 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 Gender Identity Not on file Sexual Orientation Not on file documented as of this encounter Discharge Disposition Disposition Code Departure Means Destination Discharge to home or self care documented in this encounter Plan of Treatment Not on file documented as of this encounter Procedures Procedure Name Priority Date/Time Associated Diagnosis Comments US EXTREMITY COMPLETE Routine 08/06/2017 4:26 PM CDT documented in this encounter Results * US Extremity Complete (08/06/2017 4:26 PM CDT) Anatomical Region Laterality Modality Extremity N/A Ultrasound 08/06/2017 4:26 PM CDT Narrative 08/06/2017 4:26 PM CDT INA MENA M.D. FINAL REPORT ACC# ??Date Time ??Exam [id number] Aug 06, 2017 11:26:00 [id number] Extremity Sono Comp Lt EXAMINATION: ?? Left Shoulder Sonogram Complete HISTORY: ??Left rotator cuff tear FINDINGS: Comparison radiographs 02/08/2017 have been reviewed. Dynamic sonogram of the left shoulder is performed. The biceps tendon is intact and located in the groove. There is mild subacromial-subdeltoid bursitis. The subscapularis is intact. There is a partial-thickness articular sided tear of the anterior supraspinatus, measuring 5 mm in width and 5 mm in length. ??There is no tendinopathy of the supraspinatus and infraspinatus tendons. ?? There is no fatty infiltration of the rotator cuff musculature. IMPRESSION: ? 1. 5 x 5 mm partial-thickness articular sided tear of the anterior left supraspinatus. 2. Mild left subacromial-subdeltoid bursitis. Requested By: VALENTE JACINTO Dictated By: ?? INA MENA M.D. ??on Jul ??2016 11:57A This document has been electronically signed by: INA MENA M.D. on Jul ??2016 11:57A [id number] MENA M.D. FINAL REPORT Attending: ??OPHELIA, ??VALENTE Requesting: ??OPHELIA, ??VALENTE Requesting Fax: ?? Attending Fax: ?? Attending ID: ??[id number] Requesting ID: ??[id number] Report To 1 ID: ??[id number] ? Report To 1 Name: ??, ?? Report To 1 FAX: ?? NextGen Order #: ?? Procedure Note Miscellaneous, Not In File - 09/28/2017 INA MENA M.D. FINAL REPORT ACC# Date Time Exam [id number] Aug 06, 2017 11:26:00 [id number] Extremity Sono Comp Lt EXAMINATION: Left Shoulder Sonogram Complete HISTORY: Left rotator cuff tear FINDINGS: Comparison radiographs 02/08/2017 have been reviewed. Dynamic sonogram of the left shoulder is performed. The biceps tendon is intact and located in the groove. There is mild subacromial-subdeltoid bursitis. The subscapularis is intact. There is a partial-thickness articular sided tear of the anterior supraspinatus, measuring 5 mm in width and 5 mm in length. There is no tendinopathy of the supraspinatus and infraspinatus tendons. There is no fatty infiltration of the rotator cuff musculature. IMPRESSION: 1. 5 x 5 mm partial-thickness articular sided tear of the anterior left supraspinatus. 2. Mild left subacromial-subdeltoid bursitis. Requested By: VALENTE JACINTO Dictated By: INA MENA M.D. on Aug 06 2017 11:57A This document has been electronically signed by: INA MENA M.D. on Aug 06 2017 11:57A [id number] MENA M.D. FINAL REPORT Attending: VALENTE JACINTO Requesting: VALENTE JACINTO Requesting Fax: Attending Fax: Attending ID: [id number] Requesting ID: [id number] Report To 1 ID: [id number] Report To 1 Name: , Report To 1 FAX: NextGen Order #: us Valente Jacinto RN IMG US PROCEDURES Edited Resul t - Final documented in this encounter Visit Diagnoses Not on filedocumented in this encounter Care Teams Grants Assistant Relationship Specialty Start Date End Date Unknown, Notinfile PCP - General 08/06/17 08/06/17 Walter [place] [address] 02/08/17 documented as of this encounter
--- OUTSIDE RECORDS SUMMARY | 2024-11-15 01:57 | XMS_ITS | Encounter Summary ---
Author Organization [facility] Address [address] [facility] [address] [place] [address] Care Team Providers Care Customer Success Representative Name Role Phone Walter Patrick MD Unavailable [phone] Michael Bernabe MD Primary Care Provide r Encounter Details Date Type Department Care Team (Late st Contact Info) Description 01/01/2021 Orders Only [facility] Cardiology [address] [facility] [address] [place] [address] ProviderMitch MD [address] [place] [address] Social History Tobacco Use Types Packs/Day Years Used Date Smoking Tobacco: Never Comments Unknown Sex and Gender Information Value Date Recorded Sex Assigned at Not on file 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 Gender Identity Not on file Sexual Orientation Not on file documented as of this encounter Plan of Treatment Not on file documented as of this encounter Procedures Procedure Name Priority Date/Time Associated Diagnosis Comments CARDIOLOGY DOCUMENT SCAN Routine 01/01/2021 documented in this encounter Results * SCAN - CARDIOLOGY (01/01/2021) Anatomical Region Laterality Modality Other Historical Provider [facility] Final Result documented in this encounter Visit Diagnoses Not on filedocumented in this encounter Care Teams Customer Success Representative Relationship Specialty Start Date End Date Michael Bernabe MD [address] [place] [address] PCP - General Emergency Medicine 01/01/21 03/06/21 Walter Patrick MD [address] [place] [address] 02/08/17 documented as of this encounter
--- OUTSIDE RECORDS SUMMARY | 2024-11-15 01:57 | XMS_ITS | Encounter Summary ---
Author Organization [facility] Address [address] [place] [address] Care Team Providers Care Quiller Hand Name Role Phone Walter Patrick MD Unavailable [phone] Feng George Primary Care Provider [phone] Reason for Referral * Cardiology (Routine) - Closed Specialty Diagnoses / Procedures Referred By Contac t Referred To Contact Diagnoses Essential hypertension Tachycardia, unspecified Dizziness BERGER (dyspnea on exertion) Family history of premature coronary artery disease Procedures Echo Exercise Stress Test Only Mauricio Miller MD Phone: tel: fax: Referral ID Status Reason Start Date Expiration Date Visits Re quested Visits Authorized [id number] Closed 03/19/2021 04/18/2022 1 1 Reason for Visit * Reason Comments New Patient Hypertension Rapid Heart Rate * Consultation (Routine) - Closed Specialty Diagnoses / Procedures Referred By Contac t Referred To Contact Cardiology Diagnoses Essential hypertension Tachycardia, unspecified Feng George, PA [address] [place] [address] Phone: tel: fax: [facility] Cardiology [address] [place] [address] Phone: tel: fax: Referral ID Status Reason Start Date Expiration Date V isits Requested Visits Authorized [id number] Closed Specialty Services Required 03/06/2021 04/05/2022 1 1 Encounter Details Date Type Department Care Team (Late st Contact Info) Description 03/19/2021 12:00 PM CDT Office Visit [facility] Cardiology [address] [place] [phone] Mauricio Miller MD [address] [facility] [address] [place] [address] BERGER (dyspnea on exertion) (Primary Dx); Essential hypertension; Dizziness; Tachycardia, unspecified; Family history of premature coronary artery disease; Lipid screening Social History Tobacco Use Types Packs/Day Years Used Date Smoking Tobacco: Never Comments Unknown Sex and Gender Information Value Date Recorded Sex Assigned at Not on file 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 Gender Identity Not on file Sexual Orientation Not on file documented as of this encounter Last Filed Vital Signs Vital Sign Reading Time Taken Comments Blood Pressure 138/72 03/19/2021 11:54 AM CDT Pulse 92 03/19/2021 11:54 AM CDT Temperature - - Respiratory Rate - - Oxygen Saturation 99% 03/19/2021 11:54 AM CDT Inhaled Oxygen Concentration - - Weight 64 kg (141 lb 3.2 oz) 03/19/2021 11:54 AM CDT Height 152.4 cm (5') 03/19/2021 11:54 AM CDT Body Mass Index 27.58 03/19/2021 11:54 AM CDT documented in this encounter Progress Notes * Mauricio Miller MD - 03/19/2021 12:00 PM CDT Images from the original note were not included. DATE OF VISIT: 03/19/2021 CHIEF COMPLAINT Chief Complaint Patient presents with ??? New Patient ??? Hypertension ??? Rapid Heart Rate ASSESSMENT Diagnoses and all orders for this visit: BERGER (dyspnea on exertion) (Primary) - Echo Exercise Stress Test Only; Future Essential hypertension - Ambulatory referral to Cardiology - Echo Exercise Stress Test Only; Future Dizziness - Echo Exercise Stress Test Only; Future Tachycardia, unspecified - Ambulatory referral to Cardiology - Echo Exercise Stress Test Only; Future Family history of premature coronary artery disease - Echo Exercise Stress Test Only; Future PLAN/RECOMMENDATIONS 1. BERGER and declining exercise tolerance concerning particular given risk factors including hypertension, dyslipidemia, and family history of premature atherosclerosis. Upper respiratory stridorous symptomatology is a separate issue. Patient does not report chest pain but complains of fatigue, exertional dyspnea, dizziness which may be an anginal equivalent complex. -Treadmill stress echocardiogram for further evaluation for myocardial ischemia given risk factors.If unremarkable pursue PFTs and or 2D echocardiogram based on stress echo findings. -Avoid overly strenuous activity for the time being. Monitor symptoms closely. If severe and unrelenting present to the nearest ER immediately via EMS. 2. BP stable, uncontrolled off indapamide. In the office orthostatics obtained sitting 130/68 HR 93standing 118/64 HR 97. On not diagnostic for orthostasis I recommend she push fluids and avoid dehydration. Rise slowly from seated position to avoid falls/injuries. -Monitor BP on routine basis. Call with [...] reviewed in office 03/19/21 LDL 78, well controlled. Continue statin therapy and lifestyle modification. 5. JACINDA remains a consideration regarding poor sleep, fatigue, snoring and possible apneic spells asdescribed. Sleep study pursuit after ischemic eval reviewed with recommendations. 6. Reviewed home diary with BP and heart rate. I feel her heart rate response is compensatory and does not represent clear pathology. Blood pressure is reasonably controlled on her current regimen. 7. Twelve lead EKG personally reviewed from December 2020 sinus tachycardia otherwise unremarkable EKG. Reviewed outside office note from RODOLFO Ponce, home BP, laboratory studies 06/07/2020 creatinine 0.95 potassium 3.8 AST 20 ALT 25 TSH 2.2 to hemoglobin 12.8 platelet count 248 Patient verbalized understanding of the above recommendations and agreed to plan of care. Further recommendations to follow. Over 50% of this visit counseling BERGER, tachycardia, HTN, lipids, medications, lifestyle modification. Follow up in the office in 1 month or sooner as needed. Thank you for allowing me the privilege of participating in the care this very pleasant patient. Please do not hesitate to contact me with any additional questions or concerns. HPI Dalton Gresham is a 71 y.o. 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 Losartan [...] closing when pushing fertilizer once. Given Xanax. MEDICAL HISTORY Past Medical History: Diagnosis Date [...] Allergies REVIEW OF SYSTEMS Review of Systems Constitution: Positive for malaise/fatigue and weight gain. Negative for decreased appetite, diaphoresis, fever and night sweats. HENT: Negative for hearing loss and nosebleeds. [...] for environmental allergies. PHYSICAL EXAM Vitals BP 138/72 (BP Location: Left arm, Patient Position: Sitting) Pulse 92 Ht 152.4 cm (5') Wt 64 kg (141 lb 3.2 oz) SpO2 99% BMI 27.58 kg/m?? Weight: 64 kg (141 lb 3.2 oz) Height: 152.4 cm (5') Body mass index is 27.58 kg/m??. Physical Exam Constitutional: She is oriented to person, place, and time. She appears well- developed and well-nourished. She is cooperative. No distress. HENT: Head: Normocephalic and atraumatic. Right Ear: External ear normal. Left Ear: External ear normal. Nose: Nose normal. Mouth/Throat: Oropharynx is clear and moist and mucous membranes are normal. Normal dentition. Eyes: Conjunctivae, EOM and lids are normal. No scleral icterus. Neck: Normal carotid pulses, no hepatojugular reflux and no JVD present. Carotid bruit is not present. No tracheal deviation present. No thyromegaly present. Cardiovascular: Normal rate, regular rhythm, S1 normal, S2 normal, normal heart sounds, intact distal pulses and normal pulses. Exam reveals no gallop, no S3, no S4, no distant heart sounds and no friction rub. No murmur heard. Pulmonary/Chest: Effort normal and breath sounds normal. No respiratory distress. She has no wheezes. She has no rales. She exhibits no tenderness. Abdominal: Soft. Bowel sounds are normal. She exhibits no distension and no mass. There is no abdominal tenderness. There is no rebound and no guarding. Musculoskeletal: General: No tenderness, deformity or edema. Normal range of motion. Cervical back: Normal range of motion and neck supple. Lymphadenopathy: She has no cervical adenopathy. Neurological: She is alert and oriented to person, place, and time. No cranial nerve deficit. She exhibits normal muscle tone. Coordination normal. Skin: Skin is warm and dry. No ecchymosis, no petechiae and no rash noted. She is not diaphoretic. No cyanosis or erythema. No pallor. Nails show no clubbing. Psychiatric: She has a normal mood and affect. Her speech is normal and behavior is normal. Judgment normal. LABS AND OTHER DIAGNOSTIC TESTS See above. I have personally reviewed EKG, electronic medical record, and bloodwork/lipids. Walter Miller MD, [facility] This note is dictated and transcribed using [employer] Direct Software. Hide Sorter variancesmay occur. Despite proofreading, typographical errors may occur. documented in this encounter Plan of Treatment Not on file documented as of this encounter Procedures Procedure Name Priority Date/Time Associated Diagnosis Comments POCT LIPID PANEL Routine 03/19/2021 1:07 PM CDT Lipid screening documented in this encounter Results * STRESS ECHO EXERCISE WO DOPPLER/CF WO CONTRAST (04/10/2021 11:05 AM CDT) Anatomical Region Laterality Modality Ultrasound 04/10/2021 10:1 0 AM CDT Narrative 04/10/2021 2:17 PM CDT [facility] Cardiology [address], [place] [address] [address] [facility] [address], [place] [address] P:[phone] P:[phone] Echocardiographic Report Patient Name: DALTON GRESHAM : 1950 Study Date: 04/10/2021 10:10:53 AM Gender: F Tech: Location: [place] Ref.Provider: VICENTE Height(Cm): 152 BSA: 1.61 Weight(Kg): [...] BP - 146/60. Rate Pressure Product - 08655. METS Achieved - 7.00. Percent Predicted Maximal HR Achieved - 103 %. Interpretation Site: Exam was interpreted at [facility]. Performance: Above average exercise functional capacity. [...] Procedure Note Mauricio Miller MD - 04/10/2021 [facility] Cardiology [address] [facility] [address], [place] [address] [address] [facility] [address], [place] [address] P:[phone] P:[phone] Echocardiographic Report Patient Name: DALTON GRESHAMPatient ID: [id number] : [id number] Date: 04/10/2021 10:10:53 AM Gender: FAccession #: [id number] Tech: GMLocation: [place] Ref.Provider: Byron(Cm): 152 BSA: 1.61Weight(Kg): 63.96 Heart Rate: 94BP: [...] BP - 146/60. Rate Pressure Product - 56778. METS Achieved - 7.00.Percent Predicted Maximal HR Achieved - 103 %. Interpretation Site: Exam was interpreted at [facility]. Performance: Above average exercise functional capacity. [...] By: Walter Miller MD 2021-04-10 14:16:57 CDT us Mauricio Miller MD CV ECHO PROCEDURES Final Result * POCT lipid panel (03/19/2021 1:07 PM CDT) Cholesterol, POC 181 mg/dL Comment:GLU = 119 HDL, POC 57 mg/dL Triglycerides, POC 229 mg/dL LDL Cholesterol POC 78 mg/dL Chol/HDL Ratio, POC 3.2 Non-HDL Cholesterol, POC 124 mg/dL Cholesterol Total, POC 181 mg/dL Capillary blood 03/19/2021 1 :07 PM CDT us Mauricio Miller MD POINT OF CARE TEST ORDER ELISEO Final Result documented in this encounter Visit Diagnoses Diagnosis BERGER (dyspnea on exertion)- Primary Other dyspnea and respiratory abnormality Essential hypertension Unspecified essential hypertension Dizziness Dizziness and giddiness Tachycardia, unspecified Family history of premature coronary artery disease Family history of ischemic heart disease Lipid screening Screening for lipoid disorders Essential hypertension Unspecified essential hypertension Tachycardia, unspecified Dizziness Dizziness and giddiness BERGER (dyspnea on exertion) Other dyspnea and respiratory abnormality Family history of premature coronary artery disease Family history of ischemic heart disease documented in this encounter Historical Medications * This list may reflect changes made after this encounter. loratadine (CLARITIN) 10 mg tablet Take 10 mg by mouth daily pantoprazole DR (PROTONIX) 40 mg EC tablet Take 40 mg by mouth daily amitriptyline (ELAVIL) 75 mg tablet Take 75 mg by mouth daily 03/14/2021 ALPRAZolam (XANAX) 2 mg tablet simvastatin (ZOCOR) 20 mg tablet Take 20 mg by mouth daily 01/30/2021 estrogens, conjugated, (Premarin) 0.45 mg tablet indapamide (LOZOL) 1.25 mg tablet Take 1.25 mg by mouth daily 02/26/2021 losartan (COZAAR) 50 mg tablet Take 50 mg by mouth daily 02/19/2021 added in this encounter Orders Outpatient Referral Count Last Ordered Date Fir st Ordered Date AMB REFERRAL TO CARDIOLOGY 1 03/19/2021 documented in this encounter Care Teams Quiller Hand Relationship Specialty Start Date End Date Feng George PA [address] [place] [address] PCP - General Physician Chemical Detection Expert 03/07/21 Walter Patrick [place] [address] 02/08/17 documented as of this encounter
== END 2024-11-11 09:30 | disposition home or self-care (01) ==
PROVIDERS: PCP Family Medicine; Visit Provider Family Medicine
DX: R55 Syncope and collapse (principal); R20.0 Anesthesia of skin
CPT/HCPCS: 70553; A9577

== ENCOUNTER 2025-02-06 09:26 | Outpatient (CLI) | payer MEDICARE, SELFPAY ==
--- NOTE | ~2025-02-06 | DEXA_ITS ---
Bone Density Report Name: DALTON GRESHAM Age: 74 Sex: Female Ethnicity: White Date of : 1950 Indication: postmenopausal; screening for osteoporosis; hysterectomy; Referring Provider: GABRIELE FERNANDES Study: Bone densitometry was performed. Exam Date: February 06, 2025 Accession number: [id number] Bone Density: Region BMD T-score Z-score Classification AP Spine(L1-L4) 1.024 -0.2 2.1 Normal Femoral Neck (Left) 0.751 -0.9 1.1 Normal Total Hip (Left) 0.943 0.0 1.7 Normal Femoral Neck (Right) 0.745 -0.9 1.1 Normal Total Hip (Right) 0.914 -0.2 1.5 Normal Total Hip Mean 0.929 -0.1 1.6 Normal World Health Organization criteria for BMD impression classify patients as: Normal (T-score at or above -1.0), Osteopenia (T-score between -1.0 and -2.5), or Osteoporosis (T-score at or below -2.5). 10-year Fracture Risk: FRAX not reported because: All T-scores for Spine Total, Hip Total, Femoral Neck at or above -1.0 Clinical Information Provided by Patient: Has the following medical conditions: Hysterectomy Patient maximum height was 60.5 Menopause Age: 33 No regular weight bearing exercise Drinks caffeinated beverages Onset of menses at age 13 Number of children 2 Impression: The patient has normal bone mass. Discussion: BONE DENSITY IS ABOVE THE MINIMUM DESIRABLE LEVEL AT ALL SKELETAL SITES TESTED. This patient?s bone mineral density is above the minimum desirable level (T-score -1.0 or better) at all sites measured. The patient should follow a healthful lifestyle (good nutrition with adequate calcium and vitamin D, and appropriate weight-bearing exercise). Follow-Up: Consider repeating this study in 5 years or sooner if there is some new clinical indication. Reported by: LITZY on 02/06/2025 10:03:00 AM. Reviewed, dictated and finalized at location [facility]
--- OUTSIDE RECORDS SUMMARY | 2025-02-06 10:15 | XMS_ITS | Clinical Summary ---
Author Organization [facility] Address [facility] [place] [address] Care Team Providers Care Medical Detail Representative Name Role Phone Unavailable Primary Care Provider [...] 1991 Zoster Vaccines (1 of 2) 2001 Dexa Scan (General) 2016 Pneumococcal Vaccine: 65+ Ye ars (1 of 1 - PCV) 2016 COVID-19 Vaccine (2023-2 5 season) 2024 Influenza Adult (#1) 2024 RSV Immunization or 60+ Years (1 - 1-dose 75+ series) 2026 Meningococcal B Vaccine Aged Out No l onger eligible based on patient's age to complete this topic Meningococcal Vaccine Aged Out No hui yvette eligible based on patient's age to complete this topic RSV Immunizations Under 20 Months Aged Out No longer eligible based on patient's age to complete this topic
--- OUTSIDE RECORDS SUMMARY | 2025-02-06 10:15 | XMS_ITS | Referral Summary ---
Author Organization [facility] Address [address] [place] [address] Care Team Providers Care Glassware Engraver Name Role Phone Walter Patrick MD Unavailable [phone] Sierra Edwards MD Primary Care Provider [phone] Encounters Date Type Department Care Team Description 12/22/2024 1:45 PM ANATOMY AND PHYSIOLOGY INSTRUCTOR Office Visit [facility] Cardiology at [address] [place] [phone] Michael Hathaway MD Diastolic dysfunction (Primary Dx) from Last 3 Months Allergies No known active allergies Medications losartan (COZAAR) 50 mg tablet Take 1 tablet (50 mg total) by mouth daily 02/19/2021 Active estrogens, conjugated, (Premarin) 0.45 mg tablet Active simvastatin (ZOCOR) 20 mg tablet Take 1 tablet (20 mg total) by mouth daily 01/30/2021 Active ALPRAZolam (XANAX) 2 mg tablet Active amitriptyline (ELAVIL) 75 mg tablet Take 1 tablet (75 mg total) by mouth daily 03/14/[address] (PROTONIX) 40 mg EC tablet Take 20 mg by mouth daily Active aspirin 81 mg enteric coated tablet Take 1 tablet (81 mg total) by mouth daily Active melatonin 5 mg tablet Active fexofenadine (DUSTY) 60 mg tablet Take 1 tablet (60 mg total) by mouth daily Active metoprolol XL (TOPROL-XL) 50 mg extended release tablet Take 1 tablet (50 mg total) by mouth daily 90 tablet 2 12/22/2024 Active chlorthalidone (HYGROTON) 25 mg tablet Take 1 tablet (25 mg total) by mouth daily 90 tablet 2 12/22/2024 Active Active Problems Problem Noted Date Diagnosed Date Diastolic dysfunction 12/22/2024 Chronic fatigue 05/22/2021 Dizziness 03/19/2021 Essential hypertension 03/19/2021 Tachycardia, unspecified 03/19/2021 BERGER (dyspnea on exertion) 03/19/2021 Family history of premature coronary artery dise ase 03/19/2021 Social History Tobacco Use Types Packs/Day Years Used Date Smoking Tobacco: Never Smokeless Tobacco: Never Tobacco Cessation:Counseling Given: Not Answered Comments Unknown Sex and Gender Information Value Date Recorded Sex Assigned at Not on file 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 Gender Identity Not on file Sexual Orientation Not on file Last Filed Vital Signs Vital Sign Reading Time Taken Comments Blood Pressure 174/92 12/22/2024 1:35 PM ANATOMY AND PHYSIOLOGY INSTRUCTOR Pulse 101 12/22/2024 1:35 PM ANATOMY AND PHYSIOLOGY INSTRUCTOR Temperature - - Respiratory Rate - - Oxygen Saturation 99% 12/22/2024 1:35 PM ANATOMY AND PHYSIOLOGY INSTRUCTOR Inhaled Oxygen Concentration - - Weight 64.9 kg (143 lb) 12/22/2024 1:35 PM ANATOMY AND PHYSIOLOGY INSTRUCTOR Height 152.4 cm (5') 12/22/2024 1:35 PM ANATOMY AND PHYSIOLOGY INSTRUCTOR Body Mass Index 27.93 12/22/2024 1:35 PM ANATOMY AND PHYSIOLOGY INSTRUCTOR Plan of Treatment Not on file Procedures Procedure Name Priority Date/Time Associated Diagnosis Comments ELECTROCARDIOGRAM REPORT Routine 025 7:32 AM ANATOMY AND PHYSIOLOGY INSTRUCTOR Diastolic dysfunction from Last 3 Months Results * Electrocardiogram Report (12/22/2024 7:32 AM ANATOMY AND PHYSIOLOGY INSTRUCTOR) us Michael Hathaway MD ECG ORDERABLES Final Re sult from Last 3 Months Insurance MEDICARE MEDICARE BLUE CROSS MEDICARE SUPPLEMENT Care Teams Glassware Engraver Relationship Specialty Start Date End Date Sierra Edwards MD [address] [place] [address] PCP - General Family Medicine 11/15/24 Walter Patrick MD [address] [place] [address] 02/08/17
--- OUTSIDE RECORDS SUMMARY | 2025-02-06 10:15 | XMS_ITS | Clinical Summary ---
Author Organization [facility] Address [address] [address] Care Team Providers Care Etcher Aircraft Name Role Phone Walter Patrick MD Unavailable [phone] Sierra Edwards MD Primary Care Provider [phone] Allergies No known active allergies Medications losartan [...] by mouth daily 90 tablet 2 12/22/2024 6 Active chlorthalidone (HYGROTON) 25 mg tablet Take 1 tablet (25 mg total) by mouth daily 90 tablet 2 12/22/2024 6 Active Active Problems Problem Noted Date Diagnosed Date Diastolic dysfunction 12/22/2024 Chronic fatigue 05/22/2021 Dizziness 03/19/2021 Essential hypertension 03/19/2021 Tachycardia, unspecified 03/19/2021 BERGER (dyspnea on exertion) 03/19/2021 Family history of premature coronary artery dise ase 03/19/2021 Encounters Date Type Department Care Team Description 12/22/2024 1:45 PM BIOMASS POWER PLANT SUPERINTENDENT Office Visit [facility] Cardiology at [address] [place] [address] Michael Hathaway MD Diastolic dysfunction (Primary Dx) from Last 3 Months Surgical History Surgery [...] on file Legal Sex Female 12:03 AM BIOMASS POWER PLANT SUPERINTENDENT Gender Identity Not on file Sexual Orientation Not on file Obstetrics History Last Filed Vital Signs Vital Sign Reading Time Taken Comments Blood Pressure 174/92 12/22/2024 1:35 PM BIOMASS POWER PLANT SUPERINTENDENT Pulse 101 12/22/2024 1:35 PM BIOMASS POWER PLANT SUPERINTENDENT Temperature - - Respiratory Rate - - Oxygen Saturation 99% 12/22/2024 1:35 PM BIOMASS POWER PLANT SUPERINTENDENT Inhaled Oxygen Concentration - - Weight 64.9 kg (143 lb) 12/22/2024 1:35 PM BIOMASS POWER PLANT SUPERINTENDENT Height 152.4 cm (5') 12/22/2024 1:35 PM BIOMASS POWER PLANT SUPERINTENDENT Body Mass Index 27.93 12/22/2024 1:35 PM BIOMASS POWER PLANT SUPERINTENDENT Plan of Treatment Health Maintenance Due Date Last Done Comments Breast Cancer Screening-Mammogram 1950 Colon Cancer Screening-Colonoscopy 1950 Depression Screening 1950 Fall Risk Assessment 1950 Hepatitis C Screening 1950 Osteoporosis Screening-Bone Density Scan 1950 Hepatitis B Screening 1969 Zoster Vaccine (1 of 2) 2001 Well Visit 65+ 2016 Pneumococcal vaccine 65+ (3 of 3 - PCV20 or PCV21) 11/29/2021 11/29/2016, 03/03/2016 Influenza Vaccine (#1) 2024 08/13/2020 DTaP/Tdap/Td Vaccine (3 - Td or Tdap) 01/20/2030 01/20/2020, 03/03/2016, 11/29/2005 Procedures Procedure Name Priority Date/Time Associated Diagnosis Comments ELECTROCARDIOGRAM REPORT Routine 025 7:32 AM BIOMASS POWER PLANT SUPERINTENDENT Diastolic dysfunction from Last 3 Months Results * Electrocardiogram Report (12/22/2024 7:32 AM BIOMASS POWER PLANT SUPERINTENDENT) us Michael Hathaway MD ECG ORDERABLES Final Re sult from Last 3 Months Insurance MEDICARE MEDICARE [facility] MEDICARE SUPPLEMENT Member Subscriber Plan / Payer (Ef fective 2022-Present) Name:Charisse Valderrama Relation to Subscriber:Self Name:Charisse Valderrama Payer ID:[id number] Group ID:[id number] Type:COMMERCIAL Address: [address] [place] [id number] Care Teams Etcher Aircraft Relationship Specialty Start Date End Date Sierra Edwards MD [address] [place] [address] PCP - General Family Medicine 11/15/24 Walter Patrick MD [address] [place] [address] 02/08/17
== END 2025-02-06 09:27 | disposition home or self-care (01) ==
LOC: ANHIMG 09:26
PROVIDERS: PCP Family Medicine; Visit Provider Family Medicine
DX: Z78.0 Asymptomatic menopausal state (principal)
CPT/HCPCS: 77080